=== PATIENT | female | born 1985 | race Caucasian/White ===

== ENCOUNTER 2016-12-25 11:11 | Emergency (ER) | payer OTHER ==
[2016-12-25] MEDS ORDERED: HYDROcod/ACETAM 5/325 MG TABLET PO STA (12:21)
--- NOTE | 2016-12-25 12:23 | ED Physician Documentation ---
History of Present Illness - Stated complaint Stated Complaint: GLF/RT SIDE PX - Chief complaint Chief Complaint: General - History obtained from History obtained from: Patient - History of Present Illness Timing: Today (Fell down stairs this morning at 3 a.m., hit the back of her neck and her back on the right side. Complains mostly of right posterior rib pain. She did hit her head but denies significant headache. She vomited once but she thinks that was from pain. There was no loss of consciousness. Denies extremity or abdominal injury. No low back pain. 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, Hysterectomy HEENT: Tonsil/Adenoidectomy - Present Medications Home Medications: Ambulatory Orders Medication Instructions Recorded Confirmed Venlafaxine [Effexor] 37.5 mg PO DAILY 03/21/16 03/21/16 Zolpidem [Ambien] 10 mg PO DAILY 03/21/16 03/21/16 HYDROcod/ACETAM 5/325 [[place] 5/325] 1 - 2 ea PO Q6H PRN #15 tablet 12/25/16 - Allergies Allergies/Adverse Reactions: Allergies Allergy/AdvReac Type Severity Reaction Status Date / Time acetazolamide Allergy Severe Anaphylaxis Verified 12/25/16 11:29 [From Diamox Sequels] morphine Allergy Severe Anaphylaxis Verified 12/25/16 11:29 Penicillins Allergy Unknown Unknown Verified 12/25/16 11:29 acetaminophen AdvReac Intermediate Nausea Verified 12/25/16 11:29 [From Tylenol-Codeine] codeine phosphate * AdvReac Intermediate Nausea Verified 12/25/16 11:29 [From Tylenol-Codeine] TAPE AdvReac Intermediate Rash Uncoded 03/05/14 12:44 - Social History Does the pt smoke?: No Smoking Status: Never smoker Does the pt drink ETOH?: No Does the pt have substance abuse?: No PD ED PE NORMAL - Vitals Vital signs reviewed: Yes - General General: Alert and oriented X 3, No acute distress - HEENT HEENT: PERRL, EOMI, Ears normal - Neck Neck: Other (mild mid C-spine tenderness) - Cardiac Cardiac: RRR, No murmur - Respiratory Respiratory: No respiratory distress, Clear bilaterally - Abdomen Abdomen: Non tender - Back Back: Other (Tenderness to the midthoracic spine and low ribs posteriorly on the right) - Derm Derm: Normal color, Warm and dry - Extremities Extremities: No deformity, No tenderness to palpate, Normal ROM s pain, Other ( The patient has equal and normal patellar and Achilles reflexes bilaterally. Normal sensation in all areas of the legs. Patient denies saddle anesthesia. 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 Low suspicion for head injury she is neurologically intact over this timeframe. Relevant x-rays negative. She is moving her neck around fine and after x-ray was nontender. Departure - Departure Disposition: 01 Home, Self Care Clinical Impression: Fall down stairs Qualifiers: Encounter type: initial encounter Qualified Code(s): W10.8XXA - Fall (on) (from ) other stairs and steps, initial encounter Neck strain Qualifiers: Encounter type: initial encounter Qualified Code(s): S16.1XXA - Strain of muscle, fascia and tendon at neck level, initial encounter Back contusion Qualifiers: Encounter type: initial encounter Condition: Good Record reviewed to determine appropriate education?: Yes Instructions: ED Contusion Back, ED Sprain Strain Neck Prescriptions: HYDROcod/ACETAM 5/325 [[place] 5/325] 1 - 2 ea PO Q6H PRN #15 tablet PRN Reason: Pain Comments: Call your doctor to arrange a follow up appointment. Make the next available appointment. In the interim return anytime if worse or if new symptoms develop. Do not drink or drive while on narcotic pain medicine. Note that many narcotic pain relievers also contain tylenol/acetaminophen. Please ensure that your total dose of acetaminophen from all sources does not exceed 3 grams (3000mg) per day. You may constipated on this medication, take a stool softener such as "Colace" twice a day while you are on it. Also recommend a jpyu-ggu-grrkexu laxative such as senna or MiraLAX any day that you do not have a bowel movement. If you received narcotic pain medication in the emergency department, do not drive or operate machinery for the next 24 hours. Your blood pressure was elevated today on check in to the emergency department. This does not mean that you have hypertension, it is a common phenomenon to check into the emergency department and have elevated blood pressure. I recommend that you see your primary care physician within the week to have it rechecked when you're feeling better. Forms: Activity restrictions
[2016-12-25] MEDS ORDERED: HYDROcod/ACETAM 5/325 MG TABLET ONE (12:36)
--- NOTE | 2016-12-25 14:03 | XRAY Preliminary Report ---
Exam: XR Ribs w/PA Chest RT IMPRESSION: Normal chest and rib radiography. [facility] SITE ID: [id number]
--- NOTE | 2016-12-25 14:05 | XRAY Preliminary Report ---
Exam: XR Cervical Spine 2 View IMPRESSION: Normal cervical spine radiography. [facility] SITE ID: [id number]
--- NOTE | 2016-12-25 14:07 | XRAY Report ---
EXAM: RIGHT RIB RADIOGRAPHY EXAM DATE: 12/25/2016 01:42 PM. CLINICAL HISTORY: Fall with anterior right rib pain. COMPARISON: None. TECHNIQUE: 1 view of the chest and 2 views of the ribs. FINDINGS: Bones: Normal. No fracture or bone lesion. Lungs: No focal opacities. No pneumothorax. No pleural effusions. Mediastinum: Heart and mediastinal contours are unremarkable. Other: None. IMPRESSION: Normal chest and rib radiography. [facility] Referring Provider Line: [phone] SITE ID: [id number]
--- NOTE | 2016-12-25 14:07 | XRAY Report ---
EXAM: CERVICAL SPINE RADIOGRAPHY EXAM DATE: 12/25/2016 01:42 PM. CLINICAL HISTORY: Neck pain after fall. COMPARISONS: None. TECHNIQUE: 3 views, 4 films. FINDINGS: Alignment: Normal. No spondylolisthesis or scoliosis. Bones: The cervical vertebral bodies and posterior elements are well visualized from the skull base t hrough C7-T1. No fractures or bone lesions. Disks: Normal. Disk heights are maintained. Facets: No degenerative disease. Soft Tissues: Normal. No prevertebral soft tissue swelling. The visualized lung apices are clear. IMPRESSION: Normal cervical spine radiography. [facility] Referring Provider Line: [phone] SITE ID: [id number]
--- NOTE | 2016-12-25 14:09 | XRAY Preliminary Report ---
Exam: XR Thoracic Spine 2 View IMPRESSION: Minimal degenerative disk disease without evidence of fracture. [facility] SITE ID: [id number]
--- NOTE | 2016-12-25 14:12 | XRAY Report ---
EXAM: THORACIC SPINE RADIOGRAPHY EXAM DATE: 12/25/2016 01:43 PM. CLINICAL HISTORY: Back pain after fall COMPARISON: None. TECHNIQUE: 2 views. FINDINGS: Alignment: Normal. No spondylolisthesis or scoliosis. Bones: No fractures or bone lesions. Disks: Minimal thoracic osteophytes. Soft Tissues: Surgical clips within the left upper quadrant. IMPRESSION: Minimal degenerative disk disease without evidence of fracture. [facility] Referring Provider Line: [phone] SITE ID: [id number]
[2016-12-25 14:26] VITALS: BP 129/94
== END 2016-12-25 14:28 | disposition home or self-care (01) ==
LOC: ED 11:11
DX: S20.221A Contusion of right back wall of thorax, initial encounter (principal); S16.1XXA Strain of muscle, fascia and tendon at neck level, initial encounter; W10.9XXA Fall (on) (from) unspecified stairs and steps, initial encounter; R03.0 Elevated blood-pressure reading, without diagnosis of hypertension
CPT/HCPCS: 71101; 72040; 72070; 99283; A9270

== ENCOUNTER 2017-03-19 10:13 | Emergency (ER) | payer OTHER ==
[2017-03-19] MEDS ORDERED: SODIUM CHLORIDE 0.9% 1,000 ML IV ONE (13:36)
[2017-03-19] MEDS ORDERED: KETOROLAC 60 MG/2 ML VIAL IVP STA (13:36)
[2017-03-19] MEDS ORDERED: ONDANSETRON 4 MG/2 ML VIAL IVP STA (13:36)
[2017-03-19 13:38] LABS: BILIRUBIN,URINE NEGATIVE (NEGATIVE)
--- NOTE | 2017-03-19 13:40 | ED Physician Documentation ---
History of Present Illness - Stated complaint Stated Complaint: KIDNEY PX - Chief complaint Chief Complaint: Abd Pain - Additonal information Additional information: hx from pt 31 female s/p [place] (less than 1 yr ago, doing well) shaun and hyst 8 AM onset R flank pain severe sharp unable to get comfortable with nausea no abd pain Review of Systems Constitutional: denies: Fever Cardiac: denies: Chest pain / pressure Respiratory: denies: Dyspnea GI: reports: Nausea. 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, Hysterectomy HEENT: Tonsil/Adenoidectomy - Present Medications Home Medications: Ambulatory Orders Medication Instructions Recorded Confirmed Venlafaxine [Effexor] 37.5 mg PO DAILY 03/21/16 03/19/17 Zolpidem [Ambien] 10 mg PO DAILY 03/21/16 03/19/17 Indomethacin [Indocin] 25 mg PO TIDWM PRN #21 capsule 03/19/17 Ondansetron Odt [Zofran] 4 mg TL Q6H PRN #10 tablet 03/19/17 Tamsulosin [Flomax] 0.4 mg PO DAILY #7 capsule 03/19/17 buPROPion [Wellbutrin Xl] 150 mg PO DAILY 03/19/17 03/19/17 - Allergies Allergies/Adverse Reactions: Allergies Allergy/AdvReac Type Severity Reaction Status Date / Time acetazolamide Allergy Severe Anaphylaxis Verified 03/19/17 10:25 [From Diamox Sequels] morphine Allergy Severe Anaphylaxis Verified 03/19/17 10:25 Penicillins Allergy Unknown Unknown Verified 03/19/17 10:25 acetaminophen AdvReac Intermediate Nausea Verified 03/19/17 10:25 [From Tylenol-Codeine] codeine phosphate * AdvReac Intermediate Nausea Verified 03/19/17 10:25 [From Tylenol-Codeine] TAPE AdvReac Intermediate Rash Uncoded 03/19/17 10:25 - Social History Does the pt smoke?: No Smoking Status: Never smoker Does the pt drink ETOH?: No Does the pt have substance abuse?: No - Immunizations Immunizations are current?: Yes - POLST Patient has POLST: No PD ED PE NORMAL - Vitals Vital signs reviewed: Yes - General General: Alert and oriented X 3 (presently 5/10 and comfortable) - Neck Neck: Supple, no meningeal sign - Cardiac Cardiac: RRR - Respiratory Respiratory: No respiratory distress, Clear bilaterally - Abdomen Abdomen: Soft, Non tender, Other (no RLQ pain) - Back Back: No CVA TTP (none right now but she indicates R flank was where she hurt) - Derm Derm: Normal color, No rash - Neuro 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 Results - Vitals Vitals: Vital Signs - 24 hr 03/19/17 03/19/17 10:23 13:34 Temperature 36.1 C L 37.1 C Heart Rate 96 73 Respiratory 18 16 Rate Blood Pressure 130/86 H 116/56 L O2 Saturation 95 100 Oxygen O2 Source Room air - Labs Labs: Laboratory Tests 03/19/17 03/19/17 03/19/17 13:20 13:56 13:56 WBC 12.8 H RBC 4.30 Hgb 12.0 Hct 36.7 L MCV 85.2 MCH 27.9 MCHC 32.7 RDW 13.8 Plt Count 270 MPV 9.0 Neut # 11.1 H Lymph # 1.3 L [place] # 0.4 Eos # 0.0 Baso # 0.0 Absolute Nucleated RBC 0.00 Nucleated RBCs 0.0 Sodium 137 Potassium 3.5 Chloride 101 Carbon Dioxide 27 Anion Gap 9.0 BUN 14 Creatinine 0.7 Estimated GFR (MDRD) 97 Glucose 120 H Calcium 8.7 Total Bilirubin 0.4 AST 55 H ALT 55 Alkaline Phosphatase 102 Total Protein 8.1 Albumin 4.3 Globulin 3.8 Albumin/Globulin Ratio 1.1 Lipase 20 L Urine Color YELLOW Urine Clarity CLOUDY Urine pH 6.0 Ur Specific [place] >=1.030 H Urine Protein NEGATIVE Urine Glucose (UA) NEGATIVE Urine Ketones TRACE Urine Occult Blood NEGATIVE Urine Nitrite NEGATIVE Urine Bilirubin NEGATIVE Urine Urobilinogen 1 (NORMAL) Ur Leukocyte Esterase NEGATIVE Urine RBC 0-5 Urine WBC 0-3 Ur Squamous Epith Cells MOD Squamous H Urine Crystals >50 Calcium Oxalate Urine Bacteria Few Ur Microscopic Review INDICATED - Rads (name of study) CT abd pelvis stone study Radiology: See rad report (right renal lithiasis, 1 X 2 mm stone in bladder ( then passed in the ER), but with hydro residual obstructing stone not ruled out (but not seen so preumably not large), nl appendix) Departure - Departure Disposition: 01 Home, Self Care Clinical Impression: Renal colic on right side Condition: Good Instructions: ED Stone Renal W Colic Follow-Up: Ion Back DO [Primary Care Provider] - Prescriptions: Tamsulosin [Flomax] 0.4 mg PO DAILY #7 capsule Indomethacin [Indocin] 25 mg PO TIDWM PRN #21 capsule PRN Reason: kidney stone pain Ondansetron Odt [Zofran] 4 mg TL Q6H PRN #10 tablet PRN Reason: Nausea / Vomiting Comments: The CT scan did show at least one kidney stone in your kidney and one in your bladder. And the right ureter was still swollen so you may be passing another as well. They were all small enough to pass on your own and not need surgery So it is OK for you to go home with indocin for the pain, flomax to relax the urter and help the stone pass, and zofran as needed for vomiting Drink plenty of fluids to help flush out the stones Return if worse Forms: Activity restrictions
[2017-03-19 13:43] LABS: UA w/ MICROSCOPIC CHARGE YES
[2017-03-19] MEDS ORDERED: KETOROLAC 30 MG/ML VIAL ONE (13:43)
[2017-03-19] MEDS ORDERED: SODIUM CHLORIDE FLUSH 0.9% 10 ML SYRINGE IVP ONE (13:44)
[2017-03-19] MEDS ORDERED: ONDANSETRON 4 MG/2 ML VIAL ONE (13:44)
[2017-03-19 14:04] LABS: WBC,URINE 0-3 /HPF (0-5)
[2017-03-19 14:08] LABS: BASOPHILS % (AUTO) 0.3 %; EOSINOPHILS % (AUTO) 0.1 %; HCT - HEMATOCRIT 36.7 % (37.0-47.0); LYMPHOCYTES # (AUTO) 1.3 10^3/uL (1.5-3.5); LYMPHOCYTES % (AUTO) 9.9 %; MEAN CORPUSCULAR HEMOGLOBIN 27.9 pg (27.0-31.0); MEAN CORPUSCULAR HGB CONC 32.7 g/dL (32.0-36.0); MEAN CORPUSCULAR VOLUME 85.2 fL (81.0-99.0); MONOCYTES # (AUTO) 0.4 10^3/uL (0.0-1.0); MONOCYTES % (AUTO) 3.1 %; NEUTROPHILS # (AUTO) 11.1 10^3/uL (1.5-6.6); NEUTROPHILS % (AUTO) 86.6 %; RED CELL DISTRIBUTION WIDTH 13.8 % (12.0-15.0); UNCORRECTED WHITE BLOOD COUNT 12.8 x10^3/uL; WHITE BLOOD COUNT 12.8 x10^3/uL (4.8-10.8)
[2017-03-19 14:21] LABS: ALBUMIN/GLOBULIN RATIO 1.1 (1.0-2.2); BILIRUBIN,TOTAL 0.4 mg/dL (0.2-1.0); CALCIUM 8.7 mg/dL (8.5-10.3); CREATININE 0.7 mg/dL (0.4-1.0); POTASSIUM 3.5 mmol/L (3.5-5.0); TOTAL PROTEIN 8.1 g/dL (6.7-8.2)
[2017-03-19] MEDS ORDERED: ACETAMINOPHEN 1,000 MG/100 ML 100 ML IV STA (15:05)
--- NOTE | 2017-03-19 15:13 | CT Preliminary Report ---
Exam: CT Abdomen/Pelvis W/O IMPRESSION: 1. Right renal lithiasis. 2. Mild right hydronephrosis and right hydroureter. 1 x 2 mm stone dependent portion of the urinary b ladder would be consistent with a recently passed right ureteral stone. Note, however, that a residua l obstructing stone right ureter not excluded. Recommend follow-up studies as clinically indicated if this young lady's signs or symptoms persist or progress. 3. Normal appendix. [facility] SITE ID: [id number]
[2017-03-19] MEDS ORDERED: ACETAMINOPHEN 1,000 MG/100 ML 100 ML IV ONE (15:16)
--- NOTE | 2017-03-19 15:23 | CT Report ---
EXAM: CT ABDOMEN AND PELVIS EXAM DATE: 03/19/2017 02:48 PM. CLINICAL HISTORY: Right flank pain. Difficulty urinating. COMPARISONS: None. TECHNIQUE: Routine helical CT imaging was performed through the abdomen and pelvis. IV contrast: None . Enteric contrast: No. Reconstructions: Coronal and sagittal. In accordance with CT protocol optimization, one or more of the following dose reduction techniques w ere utilized for this exam: automated exposure control, adjustment of mA and/or KV based on patient s ize, or use of iterative reconstructive technique. FINDINGS: Lung Bases: Unremarkable. Liver: Normal. No masses. Gallbladder/Bile Ducts: Unremarkable. Spleen: Normal. Pancreas: Normal. Adrenal Glands: Normal. Kidneys: 2 x 1 mm stone in the inferior right renal calyx. Mild right hydronephrosis. Mild dilatation of the e ntirety of the right ureter without calcifications within the right ureter. Left kidney and left ureter are unremarkable. Peritoneal Cavity/Bowel: Remote bariatric surgery. No free fluid, free air or adenopathy. No masses o r acute inflammatory process. The appendix is well visualized and normal. Pelvic Organs: 1 x 2 mm stone in the dependent central portion of the small caliber urinary bladder. Hysterectomy. No free fluid nor mass lesions. Vasculature: No aneurysms or other significant abnormality. Bones: Old mild anterior wedging T8 to L1. Other: None. IMPRESSION: 1. Right renolithiasis. 2. Mild right hydronephrosis and right hydroureter. 1 x 2 mm stone dependent portion of the urinary b ladder would be consistent with a recently passed right ureteral stone. Note, however, that a residua l obstructing stone right ureter not excluded. Recommend follow-up studies as clinically indicated if this young lady's signs or symptoms persist or progress. 3. Normal appendix. [facility] Referring Provider Line: [phone] SITE ID: [id number]
[2017-03-19 16:36] VITALS: BP 116/61
== END 2017-03-19 16:49 | disposition home or self-care (01) ==
LOC: ED 10:13
DX: N20.0 Calculus of kidney (principal); Z90.710 Acquired absence of both cervix and uterus; Z98.84 Bariatric surgery status
CPT/HCPCS: 36415; 74176; 80053; 81001; 83690; 85025; 96361; 96374; 96375; 99283; 99284; J0131; 81003; 87086

== ENCOUNTER 2017-07-10 13:13 | Emergency (ER) | payer OTHER ==
[2017-07-10 13:20] VITALS: BP 148/90
[2017-07-10] MEDS ORDERED: ONDANSETRON ODT 4 MG TABLET TL STA (13:31)
[2017-07-10] MEDS ORDERED: INDOMETHACIN 25 MG CAPSULE PO STA (13:31)
[2017-07-10] MEDS ORDERED: TAMSULOSIN 0.4 MG CAPSULE PO STA (13:31)
[2017-07-10] MEDS ORDERED: oxyCOD/ACETAMIN 5 MG/325 MG TABLET PO STA (13:31)
--- NOTE | 2017-07-10 13:33 | ED Physician Documentation ---
PD HPI ABD PAIN - Stated complaint Stated Complaint: RT SIDE PX - Chief complaint Chief Complaint: Abd Pain - History obtained from History obtained from: Patient - History of Present Illness Timing - onset: Other (32-year-old woman with history of renal colic once in March. CT done at that time did show right renal lithiasis. Her urine was positive for calcium oxalate. She developed right flank pain today with nausea but no vomiting. She has urinary frequency but no dysuria. No fevers. 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 HEENT: Tonsil/Adenoidectomy - Present Medications Home Medications: Ambulatory Orders Medication Instructions Recorded Confirmed Venlafaxine [Effexor] 37.5 mg PO DAILY 03/21/16 07/10/17 Zolpidem [Ambien] 10 mg PO DAILY 03/21/16 07/10/17 buPROPion [Wellbutrin Xl] 150 mg PO DAILY 03/19/17 07/10/17 Indomethacin [Indocin] 25 mg PO BIDWM PRN #10 capsule 07/10/17 Ondansetron HCl [Zofran] 4 mg PO Q6HR PRN #10 tablet 07/10/17 Oxycodone HCl/Acetaminophen 1 - 2 tab PO Q4H PRN #15 tablet 07/10/17 [Percocet 5-325 mg Tablet] Tamsulosin [Flomax] 0.4 mg PO DAILY #14 capsule 07/10/17 - Allergies Allergies/Adverse Reactions: Allergies Allergy/AdvReac Type Severity Reaction Status Date / Time acetazolamide Allergy Severe Anaphylaxis Verified 03/19/17 10:25 [From Diamox Sequels] morphine Allergy Severe Anaphylaxis Verified 03/19/17 10:25 Penicillins Allergy Unknown Unknown Verified 03/19/17 10:25 acetaminophen AdvReac Intermediate Nausea Verified 03/19/17 10:25 [From Tylenol-Codeine] codeine phosphate * AdvReac Intermediate Nausea Verified 03/19/17 10:25 [From Tylenol-Codeine] TAPE AdvReac Intermediate Rash Uncoded 03/19/17 10:25 - Social History Does the pt smoke?: No Smoking Status: Never smoker Does the pt drink ETOH?: No Does the pt have substance abuse?: No - Immunizations Immunizations are current?: Yes - POLST Patient has POLST: No PD ED PE NORMAL - Vitals Vital signs reviewed: Yes - General General: Alert and oriented X 3, No acute distress - Abdomen Abdomen: Soft, Non tender - Extremities Extremities: No edema, No calf tenderness / cord - Neuro 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, Normal speech Results - Vitals Vitals: Vital Signs - 24 hr 07/10/17 13:18 Temperature 36.4 C L Heart Rate 84 Respiratory 16 Rate Blood Pressure 148/90 H O2 Saturation 100 Oxygen O2 Source Room air - Labs Labs: Laboratory Tests 07/10/17 13:27 Urine Color YELLOW Urine Clarity CLEAR Urine pH 6.0 Ur Specific [place] 1.025 Urine Protein NEGATIVE Urine Glucose (UA) NEGATIVE Urine Ketones NEGATIVE Urine Occult Blood TRACE-INTA Urine Nitrite NEGATIVE Urine Bilirubin NEGATIVE Urine Urobilinogen 1 (NORMAL) Ur Leukocyte Esterase NEGATIVE Ur Microscopic Review NOT INDICATED Urine Culture Comments NOT INDICATED PD MEDICAL DECISION MAKING - ED course ED course: Patient is pretty sure of the diagnosis as am I, she requests minimal workup and time in the ER, urinalysis will be done noting that she is status post hysterectomy. She declined IV medication. Departure - Departure Disposition: 01 Home, Self Care Clinical Impression: Renal colic on right side Condition: Good Record reviewed to determine appropriate education?: Yes Instructions: ED Stone Renal W Colic Prescriptions: Ondansetron HCl [Zofran] 4 mg PO Q6HR PRN #10 tablet PRN Reason: Nausea / Vomiting Indomethacin [Indocin] 25 mg PO BIDWM PRN #10 capsule PRN Reason: Pain Oxycodone HCl/Acetaminophen [Percocet 5-325 mg Tablet] 1 - 2 tab PO Q4H PRN #15 tablet PRN Reason: Pain Tamsulosin [Flomax] 0.4 mg PO DAILY #14 capsule Comments: Call your doctor to arrange a follow-up appointment, make the next available appointment. In the interim, return anytime if worse or if new symptoms develop. Your blood pressure was elevated today on check into the emergency department. This does not mean that you have hypertension, it is a common phenomenon to come to the emergency department and have elevated blood pressure. I recommend that you see your primary care physician within the week to have it rechecked when you are feeling better. Do not drink or drive while taking narcotic pain medication. Note that many narcotic pain relievers also contain Tylenol/acetaminophen. Please ensure that your total dose of acetaminophen from all sources does not exceed 3 g (3000 mg) per day. You may get constipated while on this medication. Take a stool softener such as Colace twice a day while you are on it. Also add an [id number] laxative such as senna or MiraLAX on any day that you do not have a bowel movement. If you received a narcotic pain medication or sedative while in the emergency department, do not drive for the next 24 hours.
[2017-07-10 13:38] LABS: BILIRUBIN,URINE NEGATIVE (NEGATIVE)
[2017-07-10 13:39] LABS: UA CHARGE (STRIP ONLY) YES; UR CULTURE IF IND NOT INDICATED
[2017-07-10] MEDS ORDERED: INDOMETHACIN 25 MG CAPSULE PO ONE (13:49)
[2017-07-10] MEDS ORDERED: oxyCOD/ACETAMIN 5 MG/325 MG TABLET PO ONE (13:49)
[2017-07-10] MEDS ORDERED: ONDANSETRON ODT 4 MG TABLET ONE (13:49)
[2017-07-10] MEDS ORDERED: TAMSULOSIN 0.4 MG CAPSULE ONE (13:49)
== END 2017-07-10 13:48 | disposition home or self-care (01) ==
LOC: ED 13:13
DX: N23 Unspecified renal colic (principal); R03.0 Elevated blood-pressure reading, without diagnosis of hypertension
CPT/HCPCS: 81003; 99283; 99284; A9270; Q0162; 81001; 87086

== ENCOUNTER 2017-07-11 18:50 | Emergency (ER) | payer OTHER ==
[2017-07-11 20:38] LABS: BILIRUBIN,URINE NEGATIVE (NEGATIVE)
[2017-07-11 20:39] LABS: UA CHARGE (STRIP ONLY) YES; UR CULTURE IF IND NOT INDICATED
[2017-07-11] MEDS ORDERED: ONDANSETRON ODT 4 MG TABLET TL STA (21:06)
[2017-07-11] MEDS ORDERED: ONDANSETRON ODT 4 MG Prepack 2 TL PRN (21:06)
--- NOTE | 2017-07-11 21:08 | ED Physician Documentation ---
PD HPI BACK PAIN - Stated complaint Stated Complaint: SIDE PX - Chief complaint Chief Complaint: Back Pain - History obtained from History obtained from: Patient - History of Present Illness Timing - onset: Yesterday Timing - details: Gradual onset, Still present Location: Lower, Right Quality: Pain, Spasm, Similar to prior episodes Associated symptoms: No: Fever, Weakness, Numbness, Incontinent of urine, Unable to urinate Similar symptoms before: Work up / diagnostics, Treatment Recently seen: Emergency Dept - Additional information Additional information: Patient is a 32 year old female who is presenting to the emergency department for low back pain. patient was seen yesterday and was diagnosed with a small right sided kidney stone, 1mm by 2mm. Patient states that the pain persisted and that she has been nauseated so she came back into the emergency department. Patient states that she ran out of her zofran and is having a hard time controlling her nausea, but patient is able to tolerate PO without difficulty. Review of Systems Constitutional: reports: Chills. denies: Fever, Myalgias Eyes: reports: Reviewed and negative Ears: reports: Reviewed and negative Nose: reports: Reviewed and negative Throat: reports: Reviewed and negative Cardiac: denies: Chest pain / pressure, Palpitations Respiratory: denies: Dyspnea, Cough, Wheezing GI: reports: Nausea. denies: Vomiting, Constipation, Diarrhea : denies: Dysuria, Frequency Skin: denies: Rash, Lesions Musculoskeletal: reports: Back pain. 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, Hysterectomy HEENT: Tonsil/Adenoidectomy - Present Medications Home Medications: Ambulatory Orders Medication Instructions Recorded Confirmed Venlafaxine [Effexor] 37.5 mg PO DAILY 03/21/16 07/11/17 Zolpidem [Ambien] 10 mg PO DAILY 03/21/16 07/11/17 buPROPion [Wellbutrin Xl] 150 mg PO DAILY 03/19/17 07/11/17 Indomethacin [Indocin] 25 mg PO BIDWM PRN #10 capsule 07/10/17 07/11/17 Ondansetron HCl [Zofran] 4 mg PO Q6HR PRN #10 tablet 07/10/17 07/11/17 Oxycodone HCl/Acetaminophen 1 - 2 tab PO Q4H PRN #15 tablet 07/10/17 07/11/17 [Percocet 5-325 mg Tablet] Tamsulosin [Flomax] 0.4 mg PO DAILY #14 capsule 07/10/17 07/11/17 Ondansetron Odt [Zofran] 4 mg TL Q6H PRN #20 tablet 07/11/17 - Allergies Allergies/Adverse Reactions: Allergies Allergy/AdvReac Type Severity Reaction Status Date / Time acetazolamide Allergy Severe Anaphylaxis Verified 07/11/17 19:27 [From Diamox Sequels] morphine Allergy Severe Anaphylaxis Verified 07/11/17 19:27 Penicillins Allergy Unknown Unknown Verified 07/11/17 19:27 acetaminophen AdvReac Intermediate Nausea Verified 07/11/17 19:27 [From Tylenol-Codeine] codeine phosphate * AdvReac Intermediate Nausea Verified 07/11/17 19:27 [From Tylenol-Codeine] TAPE AdvReac Intermediate Rash Uncoded 07/11/17 19:27 - Social History Does the pt smoke?: No Smoking Status: Never smoker Does the pt drink ETOH?: Yes ETOH Use: Wine Does the pt have substance abuse?: No - Immunizations Immunizations are current?: Yes - POLST Patient has POLST: No PD ED PE NORMAL - Vitals Vital signs reviewed: Yes - General General: Alert and oriented X 3, No acute distress, Well developed/nourished - HEENT HEENT: Atraumatic, PERRL, Moist mucous membranes - Cardiac Cardiac: RRR, No murmur - Respiratory Respiratory: No respiratory distress - Abdomen Abdomen: Soft, Non tender, Non distended - Derm Derm: Normal color, Warm and dry, No rash - Extremities Extremities: No deformity, Normal ROM s pain, No edema - Neuro 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, No motor deficit, No sensory deficit - Psych Psych: Normal mood Results - Vitals Vitals: Vital Signs - 24 hr 07/11/17 07/11/17 07/11/17 19:23 21:03 21:25 Temperature 36.6 C 36.6 C Heart Rate 84 81 76 Respiratory 18 18 18 Rate Blood Pressure 129/82 H 125/79 117/78 O2 Saturation 100 100 97 Oxygen O2 Source Room air - Labs Labs: Laboratory Tests 07/11/17 20:20 Urine Color YELLOW Urine Clarity CLEAR Urine pH 6.0 Ur Specific [place] >=1.030 H Urine Protein NEGATIVE Urine Glucose (UA) NEGATIVE Urine Ketones TRACE Urine Occult Blood NEGATIVE Urine Nitrite NEGATIVE Urine Bilirubin NEGATIVE Urine Urobilinogen 0.2 (NORMAL) Ur Leukocyte Esterase NEGATIVE Ur Microscopic Review NOT INDICATED Urine Culture Comments NOT INDICATED PD MEDICAL DECISION MAKING - ED course Complexity details: reviewed old records, reviewed results, re-evaluated patient , considered differential, d/w patient ED course: Patient was seen and examined at bedside. Previous records were reviewed and patient was found to have a small stone, 1mm by 2mm. Urine was collected and showed no sign of infection. patient was treated with zofran. prescriptions had already been written yesterday for the patient. Patient required no further work up at this time, and patient was stable for discharge with outpatient follow up. Departure - Departure Disposition: 01 Home, Self Care Clinical Impression: Renal colic on right side Condition: Good Instructions: ED Stone Renal W Colic Follow-Up: Ion Back DO [Primary Care Provider] - Within 3 Days Prescriptions: Ondansetron Odt [Zofran] 4 mg TL Q6H PRN #20 tablet PRN Reason: Nausea / Vomiting Comments: Your diagnostics today were within normal limits. there is no sign of infection on your urinalysis and the size of your stone is relatively small and should pass on its own. You should take the zofran for nausea and stay well hydrated. You can take the motrin, or tylenol as needed for pain. YOu should follow up with your doctor if your symptoms persist. You may return to the emergency department at any time for new, worsening or uncontrollable symptoms. Forms: Activity restrictions Discharge Date/Time: 07/11/17 21:35
[2017-07-11] MEDS ORDERED: ONDANSETRON ODT 4 MG TABLET ONE (21:14)
[2017-07-11] MEDS ORDERED: ONDANSETRON ODT 4 MG Prepack 2 TL ONE (21:14)
[2017-07-11 21:35] VITALS: BP 117/78
== END 2017-07-11 21:35 | disposition home or self-care (01) ==
LOC: ED 18:50
DX: N23 Unspecified renal colic (principal); Z87.442 Personal history of urinary calculi
CPT/HCPCS: 81003; 99283; Q0162; 81001; 87086

== ENCOUNTER 2017-11-07 08:52 | Emergency (ER) | payer OTHER ==
--- NOTE | 2017-11-07 10:06 | ED Physician Documentation ---
History of Present Illness - Stated complaint Stated Complaint: LT FT SWOLLEN - Chief complaint Chief Complaint: Ext Problem - Additonal information Additional information: hx from pt 32 f tattoo form a week ago infected - foot red warm swollen painful denies preg no hx PRSA all pencillin but has taken keflex s rxn Review of Systems Constitutional: denies: Fever : denies: Now EGA Skin: reports: Rash PD PAST MEDICAL HISTORY - Past Medical History Cardiovascular: None Respiratory: None Neuro: None Endocrine/Autoimmune: None GI: None : Kidney stones HEENT: None Psych: None Musculoskeletal: None Derm: None - Past Surgical History General: Cholecystectomy, 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 11/07/17 - Allergies Allergies/Adverse Reactions: Allergies Allergy/AdvReac Type Severity Reaction Status Date / Time acetazolamide Allergy Severe Anaphylaxis Verified 11/07/17 08:58 [From Diamox Sequels] morphine Allergy Severe Anaphylaxis Verified 11/07/17 08:58 Penicillins Allergy Unknown Unknown Verified 11/07/17 08:58 acetaminophen AdvReac Intermediate Nausea Verified 11/07/17 08:58 [From Tylenol-Codeine] codeine phosphate * AdvReac Intermediate Nausea Verified 11/07/17 08:58 [From Tylenol-Codeine] TAPE AdvReac Intermediate Rash Uncoded 07/11/17 19:27 - Social History Does the pt smoke?: No Smoking Status: Never smoker Does the pt drink ETOH?: Yes Does the pt have substance abuse?: No - Immunizations Immunizations are current?: Yes - POLST Patient has POLST: No PD ED PE NORMAL - Vitals Vital signs reviewed: Yes - Cardiac Cardiac: RRR - Respiratory Respiratory: No respiratory distress, Clear bilaterally - Extremities Extremities: Other (L foot with erythema tenderness swelling surrounding new tattoo - no streaking, no crepitus, no bullae, no necrosis) Results - Vitals Vitals: Vital Signs - 24 hr 11/07/17 08:54 Temperature 36.7 C Heart Rate 84 Respiratory 16 Rate Blood Pressure 143/79 H O2 Saturation 99 Oxygen O2 Source Room air Departure - Departure Disposition: Home, Self Care Clinical Impression: Cellulitis of foot Condition: Good Instructions: ED Infec Skin Cellulitis Follow-Up: Ion Back DO [Primary Care Provider] - (for a recheck next week) Prescriptions: Cephalexin [Keflex] 500 mg PO Q6H #28 capsule HYDROcod/ACETAM 5/325 [[place] 5/325] 1 ea PO Q6H PRN #6 tablet PRN Reason: Severe Pain Mupirocin Calcium [Bactroban] 1 applic TP BID #30 cream..g. Forms: Activity restrictions
[2017-11-07 10:25] VITALS: BP 130/85
== END 2017-11-07 10:24 | disposition home or self-care (01) ==
LOC: ED 08:52
DX: L03.116 Cellulitis of left lower limb (principal); L81.8 Other specified disorders of pigmentation
CPT/HCPCS: 99283

== ENCOUNTER 2018-06-09 10:31 | Emergency (ER) | payer OTHER ==
[2018-06-09 11:26] LABS: BILIRUBIN,URINE NEGATIVE (NEGATIVE); GLUCOSE, URINE (UA) NEGATIVE (NEGATIVE); KETONES,URINE (UA) NEGATIVE (NEGATIVE); LEUKOCYTE ESTERASE, URINE SMALL (NEGATIVE); NITRITE,URINE POSITIVE (NEGATIVE); OCCULT BLOOD,URINE MODERATE (NEGATIVE); PH,URINE 5.5 PH (5.0-7.5); PROTEIN,URINE TRACE mg/dL (NEGATIVE); UROBILINOGEN,URINE 0.2 (NORMAL) E.U./dL (NORMAL)
[2018-06-09 11:50] LABS: CLARITY,URINE CLOUDY (CLEAR)
[2018-06-09 11:51] LABS: BACTERIA,URINE Moderate /HPF (None Seen); MUCUS,URINE Moderate Strands; SQUAMOUS EPITHELIAL CELL,UR RARE Squamous (<= Few)
[2018-06-09 12:00] LABS: BASOPHILS % (AUTO) 0.2 %; HGB - HEMOGLOBIN 11.1 g/dL (12.0-16.0); LYMPHOCYTES # (AUTO) 0.6 10^3/uL (1.5-3.5); MEAN CORPUSCULAR HEMOGLOBIN 28.1 pg (27.0-31.0); MEAN CORPUSCULAR HGB CONC 32.8 g/dL (32.0-36.0); MEAN CORPUSCULAR VOLUME 85.6 fL (81.0-99.0); MEAN PLATELET VOLUME 8.6 fL (7.9-10.8); MONOCYTES # (AUTO) 1.5 10^3/uL (0.0-1.0); MONOCYTES % (AUTO) 4.9 %; NEUTROPHILS # (AUTO) 27.5 10^3/uL (1.5-6.6); NEUTROPHILS % (AUTO) 92.9 %; PLT - PLATELET COUNT 279 10^3/uL (130-450); RED BLOOD COUNT 3.97 10^6/uL (4.20-5.40); RED CELL DISTRIBUTION WIDTH 14.1 % (12.0-15.0); WHITE BLOOD COUNT 29.6 x10^3/uL (4.8-10.8)
[2018-06-09 12:12] LABS: ALBUMIN 3.9 g/dL (3.2-5.5); ALBUMIN/GLOBULIN RATIO 1.1 (1.0-2.2); BILIRUBIN,TOTAL 0.9 mg/dL (0.2-1.0); CALCIUM 8.2 mg/dL (8.5-10.3); TOTAL PROTEIN 7.4 g/dL (6.7-8.2)
[2018-06-09] MEDS ORDERED: SODIUM CHLORIDE 0.9% 1,000 ML IV ONE (13:02)
[2018-06-09] MEDS ORDERED: levoFLOXacin 500 MG/100 ML 500 MG/100 ML BAG IV ONE (13:02)
[2018-06-09] MEDS ORDERED: HYDROmorphone 1 MG/ML CARPUJECT IVP STA ×2 (13:05→14:26)
[2018-06-09] MEDS ORDERED: PROMETHAZINE INJ 25 MG in SODIUM CHLORIDE 0.9% 50 ML IV STA (13:05)
[2018-06-09] MEDS ORDERED: KETOROLAC 15 MG/ML VIAL IVP STA (13:05)
--- NOTE | 2018-06-09 13:05 | ED Physician Documentation ---
PD HPI ABD PAIN - Stated complaint Stated Complaint: SIDE PX/VOMITING/CHILLS - Chief complaint Chief Complaint: Abd Pain - History obtained from History obtained from: Patient - History of Present Illness Timing - onset: Yesterday (32-year-old woman with history of conservatively managed renal colic presents with sudden onset right flank pain with chills, nausea, and vomiting since yesterday as well as body aches and other systemic symptoms. She feels like it is consistent with prior renal colic.) Review of Systems Ten Systems: 10 systems reviewed and negative Constitutional: reports: Fever. denies: Chills Cardiac: denies: Chest pain / pressure, Palpitations Respiratory: denies: Dyspnea, Cough GI: reports: Abdominal Pain, Nausea, Vomiting. 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 11/07/17 - Allergies Allergies/Adverse Reactions: Allergies Allergy/AdvReac Type Severity Reaction Status Date / Time acetazolamide Allergy Severe Anaphylaxis Verified 06/09/18 11:07 [From Diamox Sequels] morphine Allergy Severe Anaphylaxis Verified 06/09/18 11:07 Penicillins Allergy Unknown Unknown Verified 06/09/18 11:07 acetaminophen AdvReac Intermediate Nausea Verified 06/09/18 11:07 [From Tylenol-Codeine] codeine phosphate * AdvReac Intermediate Nausea Verified 06/09/18 11:07 [From Tylenol-Codeine] TAPE AdvReac Intermediate Rash Uncoded 07/11/17 19:27 - Social History Does the pt smoke?: No Smoking Status: Never smoker Does the pt drink ETOH?: Yes Does the pt have substance abuse?: No - Immunizations Immunizations are current?: Yes - POLST Patient has POLST: No PD ED PE NORMAL - Vitals Vital signs reviewed: Yes - General General: Alert and oriented X 3, No acute distress - HEENT HEENT: Pharynx benign - Neck Neck: Supple, no meningeal sign, No bony TTP - Cardiac Cardiac: RRR, No murmur - Respiratory Respiratory: No respiratory distress, Clear bilaterally - Abdomen Abdomen: Non distended, Other (Mild RUQ TTP, No G/R) - Back Back: No CVA TTP, No spinal TTP - Derm Derm: Normal color, Warm and dry - Extremities Extremities: No edema, No calf tenderness / cord - Neuro 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, Normal speech Results - Vitals Vitals: Vital Signs - 24 hr 06/09/18 06/09/18 11:03 13:13 Temperature 36.9 C Heart Rate 114 H 106 H Respiratory 18 20 Rate Blood Pressure 105/57 L 121/75 O2 Saturation 98 97 Oxygen O2 Source Room air - Labs Labs: Laboratory Tests 06/09/18 06/09/18 06/09/18 11:20 11:42 11:42 WBC 29.6 H RBC 3.97 L Hgb 11.1 L Hct 34.0 L MCV 85.6 MCH 28.1 MCHC 32.8 RDW 14.1 Plt Count 279 MPV 8.6 Neut # (Auto) 27.5 H Lymph # (Auto) 0.6 L [place] # (Auto) 1.5 H Eos # (Auto) 0.0 Baso # (Auto) 0.0 Absolute Nucleated RBC 0.00 Nucleated RBC % 0.0 Manual Slide Review Indicated Sodium 135 Potassium 4.0 Chloride 102 Carbon Dioxide 22 Anion Gap 11.0 BUN 16 Creatinine 1.0 Estimated GFR (MDRD) 64 L Glucose 152 H Lactic Acid Calcium 8.2 L Total Bilirubin 0.9 AST 35 ALT 22 Alkaline Phosphatase 74 Total Protein 7.4 Albumin 3.9 Globulin 3.5 Albumin/Globulin Ratio 1.1 Lipase 22 Urine Color YELLOW Urine Clarity CLOUDY Urine pH 5.5 Ur Specific [place] >=1.030 H Urine Protein TRACE Urine Glucose (UA) NEGATIVE Urine Ketones NEGATIVE Urine Occult Blood MODERATE H Urine Nitrite POSITIVE H Urine Bilirubin NEGATIVE Urine Urobilinogen 0.2 (NORMAL) Ur Leukocyte Esterase SMALL H Urine RBC 6-10 H Urine WBC 11-25 H Ur Squamous Epith Cells RARE Squamous Urine Bacteria Moderate H Urine Mucus Moderate Strands Ur Microscopic Review INDICATED Urine Culture Comments INDICATED 06/09/18 13:07 WBC RBC Hgb Hct MCV MCH MCHC RDW Plt Count MPV Neut # (Auto) Lymph # (Auto) [place] # (Auto) Eos # (Auto) Baso # (Auto) Absolute Nucleated RBC Nucleated RBC % Manual Slide Review Sodium Potassium Chloride Carbon Dioxide Anion Gap BUN Creatinine Estimated GFR (MDRD) Glucose Lactic Acid 1.9 Calcium Total Bilirubin AST ALT Alkaline Phosphatase Total Protein Albumin Globulin Albumin/Globulin Ratio Lipase Urine Color Urine Clarity Urine pH Ur Specific [place] Urine Protein Urine Glucose (UA) Urine Ketones Urine Occult Blood Urine Nitrite Urine Bilirubin Urine Urobilinogen Ur Leukocyte Esterase Urine RBC Urine WBC Ur Squamous Epith Cells Urine Bacteria Urine Mucus Ur Microscopic Review Urine Culture Comments - Rads (name of study) CT KUB Radiology: EMP read contemporaneously (Right hydronephrosis d/t 6mm distal ureteral stone) PD MEDICAL DECISION MAKING - ED course ED course: 32-year-old woman with conservatively managed renal colic in the past presents with sudden onset right-sided pain consistent with renal colic but has an infected appearing urinalysis with a white count of 29,000 which is concerning for obstructive pyelonephritis. A CT will be done, blood cultures obtained and Levaquin is hung. After the CT showing obstructive uropathy due to a distal ureteral stone I discussed the case by phone with Dr. Boland at [facility] who will consult defers to the hospitalist there for admission. Spoke with Dr. nielsen at 1410 who accepts in transfer to schedule hospitalist service, wes saldana. Departure - Departure Disposition: 02 Transfer Acute Care Hosp Clinical Impression: Ureterolithiasis, Pyelonephritis Condition: Serious
--- NOTE | 2018-06-09 13:50 | CT Report ---
Reason: R pyelo, +/- stone Procedure Date: 06/09/2018 Accession Number: [id number] / [id number] Procedure: CT - Abdomen/Pelvis W/O CPT Code: FULL RESULT: EXAM: CT ABDOMEN AND PELVIS EXAM DATE: 06/09/2018 01:32 PM. CLINICAL HISTORY: Right pyelo, +/- stone. COMPARISONS: ABDOMEN/PELVIS W/O 03/19/2017 2:36 PM. TECHNIQUE: Routine helical CT imaging was performed through the abdomen and pelvis. IV contrast: No. Enteric contrast: No. Reconstructions: Coronal and sagittal. In accordance with CT protocol optimization, one or more of the following dose reduction techniques were utilized for this exam: automated exposure control, adjustment of mA and/or KV based on patient size, or use of iterative reconstructive technique. FINDINGS: Lung Bases: Unremarkable. Liver: Normal. No masses. Gallbladder/Bile Ducts: Unremarkable. Spleen: Normal. Pancreas: Normal. Adrenal Glands: Normal. Kidneys: Interval increase in previously mild hydronephrosis, now moderate hydroureteronephrosis with marked perinephric fat stranding and 6 mm obstructing ureteral calculus at the distal ureterovesicular junction. Left kidney demonstrates punctate nonobstructing calculi and is otherwise unremarkable. Peritoneal Cavity/Bowel: The patient is status post gastric bypass surgery. No free fluid, free air or adenopathy. No masses or acute inflammatory process. Pelvic Organs: Normal. The bladder and visualized pelvic organs are within normal limits. Vasculature: No aneurysms or other significant abnormality. Bones: No significant abnormality. Other: None. IMPRESSION: Moderate right hydroureteronephrosis due to obstructing 6 mm distal ureteral calculus. [facility] CRITICAL RESULT: The findings were discussed with Dr. Guillory on 06/09/2018 at 1:35 PM.
[2018-06-09] MEDS ORDERED: ONDANSETRON 4 MG/2 ML VIAL IVP STA (14:26)
[2018-06-09 15:22] VITALS: BP 128/75
== END 2018-06-09 15:32 | disposition short-term general hospital (02) ==
LOC: ED 10:31
DX: N13.2 Hydronephrosis with renal and ureteral calculous obstruction (principal); N12 Tubulo-interstitial nephritis, not specified as acute or chronic; Z87.442 Personal history of urinary calculi
CPT/HCPCS: 36415; 74176; 80053; 81001; 83605; 83690; 85025; 87040; 87086; 87181; 96365; 96368; 96375; 96376; 99283; 99285; J1170; J7040; 81003; 99284

== ENCOUNTER 2018-06-09 15:26 | Outpatient (CLI) | payer OTHER | END 2018-06-09 15:27 | disposition short-term general hospital (02) | LOC: EMS 15:26 | PROVIDERS: ATTEND Surgery | DX: N20.0 Calculus of kidney (principal) | CPT/HCPCS: A0425; A0428 ==

== ENCOUNTER 2018-08-17 12:45 | Emergency (ER) | payer BC, OTHER ==
[2018-08-17] MEDS ORDERED: PROMETHAZINE INJ 25 MG in SODIUM CHLORIDE 0.9% 50 ML IV STA (13:17)
[2018-08-17] MEDS ORDERED: HYDROmorphone 1 MG/ML CARPUJECT IVP STA (13:17)
--- NOTE | 2018-08-17 13:19 | ED Physician Documentation ---
PD HPI ABD PAIN - Stated complaint Stated Complaint: R FLANK PAIN - Chief complaint Chief Complaint: Abd Pain - History obtained from History obtained from: Patient, Family - History of Present Illness Timing - onset: Other (About 2 months ago she had a large right ureteral stone causing obstruction with pyelonephritis and ended up having E. coli urosepsis from it. The stone was removed and she had a stent for 3 weeks. Review of the CT done at that time showed no nephroliths on the right, she had some on the left. Over the last week she has had increasing waxing and waning right flank pain that is nonradiating with urinary frequency and she had hematuria briefly 2 days ago. There are no fevers or chills.) Review of Systems Ten Systems: 10 systems reviewed and negative Constitutional: denies: Fever, Chills Nose: denies: Rhinorrhea / runny nose, Congestion Respiratory: denies: Dyspnea, Cough GI: reports: Nausea. denies: Abdominal Pain, Vomiting : reports: Frequency. 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 11/07/17 Oxycodone HCl/Acetaminophen 1 - 2 each PO Q6H PRN #14 tablet 08/17/18 [Percocet 5-325 mg Tablet] Promethazine [Phenergan] 25 mg PO Q6H PRN #10 tab 08/17/18 - Allergies Allergies/Adverse Reactions: Allergies Allergy/AdvReac Type Severity Reaction Status Date / Time acetazolamide Allergy Severe Anaphylaxis Verified 06/09/18 11:07 [From Diamox Sequels] morphine Allergy Severe Anaphylaxis Verified 06/09/18 11:07 Penicillins Allergy Unknown Unknown Verified 06/09/18 11:07 acetaminophen AdvReac Intermediate Nausea Verified 06/09/18 11:07 [From Tylenol-Codeine] codeine phosphate * AdvReac Intermediate Nausea Verified 06/09/18 11:07 [From Tylenol-Codeine] TAPE AdvReac Intermediate Rash Uncoded 07/11/17 19:27 - Social History Does the pt smoke?: No Smoking Status: Never smoker Does the pt drink ETOH?: Yes Does the pt have substance abuse?: No - Immunizations Immunizations are current?: Yes - POLST Patient has POLST: No PD ED PE NORMAL - Vitals Vital signs reviewed: Yes - General General: Alert and oriented X 3, No acute distress - HEENT HEENT: PERRL, EOMI - Neck Neck: Supple, no meningeal sign, No bony TTP - Cardiac Cardiac: RRR, No murmur - Respiratory Respiratory: No respiratory distress, Clear bilaterally - Abdomen Abdomen: Normal bowel sounds, Soft, Non tender - Back Back: No CVA TTP, No spinal TTP - Extremities Extremities: No edema, No calf tenderness / cord - Neuro 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, Normal speech - Psych Psych: Normal mood, Normal affect Results - Vitals Vitals: Vital Signs - 24 hr 08/17/18 13:00 Temperature 37.1 C Heart Rate 79 Respiratory 18 Rate Blood Pressure 135/83 H O2 Saturation 100 Oxygen O2 Source Room air - Labs Labs: Laboratory Tests 08/17/18 08/17/18 08/17/18 13:06 13:14 13:14 WBC 9.5 RBC 4.16 L Hgb 11.2 L Hct 33.8 L MCV 81.2 MCH 26.9 L MCHC 33.2 RDW 16.1 H Plt Count 291 MPV 8.6 Neut # (Auto) 5.9 Lymph # (Auto) 2.6 [place] # (Auto) 0.7 Eos # (Auto) 0.1 Baso # (Auto) 0.1 Absolute Nucleated RBC 0.00 Nucleated RBC % 0.0 Sodium 138 Potassium 3.2 L Chloride 106 Carbon Dioxide 26 Anion Gap 6.0 BUN 17 Creatinine 0.5 Estimated GFR (MDRD) 141 Glucose 87 Calcium 8.5 Total Bilirubin 0.4 AST 21 ALT 18 Alkaline Phosphatase 98 Total Protein 8.2 Albumin 4.1 Globulin 4.1 Albumin/Globulin Ratio 1.0 Lipase 22 Urine Color YELLOW Urine Clarity HAZY Urine pH 6.0 Ur Specific [place] 1.025 Urine Protein NEGATIVE Urine Glucose (UA) NEGATIVE Urine Ketones NEGATIVE Urine Occult Blood NEGATIVE Urine Nitrite NEGATIVE Urine Bilirubin NEGATIVE Urine Urobilinogen 0.2 (NORMAL) Ur Leukocyte Esterase NEGATIVE Urine RBC 0-5 Urine WBC 0-3 Ur Squamous Epith Cells MANY Squamous H Urine Bacteria Many H Urine Mucus Marked Strands Ur Microscopic Review INDICATED Urine Culture Comments NOT INDICATED 08/17/18 14:55 WBC RBC Hgb Hct MCV MCH MCHC RDW Plt Count MPV Neut # (Auto) Lymph # (Auto) [place] # (Auto) Eos # (Auto) Baso # (Auto) Absolute Nucleated RBC Nucleated RBC % Sodium Potassium Chloride Carbon Dioxide Anion Gap BUN Creatinine Estimated GFR (MDRD) Glucose Calcium Total Bilirubin AST ALT Alkaline Phosphatase Total Protein Albumin Globulin Albumin/Globulin Ratio Lipase Urine Color YELLOW Urine Clarity CLEAR Urine pH 6.0 Ur Specific [place] <=1.005 Urine Protein NEGATIVE Urine Glucose (UA) NEGATIVE Urine Ketones NEGATIVE Urine Occult Blood NEGATIVE Urine Nitrite NEGATIVE Urine Bilirubin NEGATIVE Urine Urobilinogen 0.2 (NORMAL) Ur Leukocyte Esterase NEGATIVE Urine RBC Urine WBC Ur Squamous Epith Cells Urine Bacteria Urine Mucus Ur Microscopic Review NOT INDICATED Urine Culture Comments NOT INDICATED - Rads (name of study) CT IVP Radiology: EMP read contemporaneously (Mild right hydronephrosis and hydroureter without stone, nonobstructing nephrolithiasis on the left and other chronic findings.) PD MEDICAL DECISION MAKING - ED course ED course: She presents with renal colic type pain, but the CT from May was reviewed, there were no other nephroliths on the right and she subsequently had the obstructing stone removed. This left a differential of very rapidly growing stone on the right but that seems unlikely, scar or stricture from prior manipulation or stone which seems more likely, or pyelonephritis. Her urine was relatively clear and she does not have a white count. The CT was done as an IVP to evaluate for scar stricture and I suspect this may be the diagnosis. She failed to develop a good rapport with her prior urologist and is referred to another group. Departure - Departure Disposition: 01 Home, Self Care Clinical Impression: Hydroureter on right Condition: Good Record reviewed to determine appropriate education?: Yes Instructions: ED Abdominal Pain Unkn Cause Prescriptions: Oxycodone HCl/Acetaminophen [Percocet 5-325 mg Tablet] 1 - 2 each PO Q6H PRN #14 tablet PRN Reason: pain Promethazine [Phenergan] 25 mg PO Q6H PRN #10 tab PRN Reason: Nausea / Vomiting Comments: With a copy of the CAT scan I recommend following up again with urologist, a different option from the one used before would be Dr. Semaj Sloan, his office is in [place]. His phone number is [phone].
[2018-08-17 13:25] LABS: BILIRUBIN,URINE NEGATIVE (NEGATIVE); GLUCOSE, URINE (UA) NEGATIVE (NEGATIVE); KETONES,URINE (UA) NEGATIVE (NEGATIVE); LEUKOCYTE ESTERASE, URINE NEGATIVE (NEGATIVE); NITRITE,URINE NEGATIVE (NEGATIVE); OCCULT BLOOD,URINE NEGATIVE (NEGATIVE); PROTEIN,URINE NEGATIVE (NEGATIVE); UROBILINOGEN,URINE 0.2 (NORMAL) E.U./dL (NORMAL)
[2018-08-17 13:25] LABS: BASOPHILS # (AUTO) 0.1 10^3/uL (0.0-0.1); BASOPHILS % (AUTO) 0.9 %; EOSINOPHILS # (AUTO) 0.1 10^3/uL (0.0-0.7); EOSINOPHILS % (AUTO) 1.4 %; HGB - HEMOGLOBIN 11.2 g/dL (12.0-16.0); LYMPHOCYTES # (AUTO) 2.6 10^3/uL (1.5-3.5); LYMPHOCYTES % (AUTO) 27.8 %; MEAN CORPUSCULAR HEMOGLOBIN 26.9 pg (27.0-31.0); MEAN CORPUSCULAR HGB CONC 33.2 g/dL (32.0-36.0); MEAN CORPUSCULAR VOLUME 81.2 fL (81.0-99.0); MEAN PLATELET VOLUME 8.6 fL (7.9-10.8); MONOCYTES # (AUTO) 0.7 10^3/uL (0.0-1.0); MONOCYTES % (AUTO) 7.5 %; NEUTROPHILS # (AUTO) 5.9 10^3/uL (1.5-6.6); NEUTROPHILS % (AUTO) 62.4 %; PLT - PLATELET COUNT 291 10^3/uL (130-450); RED BLOOD COUNT 4.16 10^6/uL (4.20-5.40); RED CELL DISTRIBUTION WIDTH 16.1 % (12.0-15.0); WHITE BLOOD COUNT 9.5 x10^3/uL (4.8-10.8)
[2018-08-17 13:26] LABS: CLARITY,URINE HAZY (CLEAR)
[2018-08-17 13:32] LABS: ALBUMIN 4.1 g/dL (3.2-5.5); BILIRUBIN,TOTAL 0.4 mg/dL (0.2-1.0); CALCIUM 8.5 mg/dL (8.5-10.3); CREATININE 0.5 mg/dL (0.4-1.0); TOTAL PROTEIN 8.2 g/dL (6.7-8.2)
[2018-08-17 13:40] LABS: BACTERIA,URINE Many /HPF (None Seen); RBC,URINE 0-5 /HPF (0-5); SQUAMOUS EPITHELIAL CELL,UR MANY Squamous (<= Few)
[2018-08-17] MEDS ORDERED: IOVERSOL 320 100 ML VIAL IVP ONE ×2 (13:40→14:32)
[2018-08-17 13:41] LABS: MUCUS,URINE Marked Strands
[2018-08-17 15:06] LABS: BILIRUBIN,URINE NEGATIVE (NEGATIVE); CLARITY,URINE CLEAR (CLEAR); GLUCOSE, URINE (UA) NEGATIVE (NEGATIVE); KETONES,URINE (UA) NEGATIVE (NEGATIVE); LEUKOCYTE ESTERASE, URINE NEGATIVE (NEGATIVE); NITRITE,URINE NEGATIVE (NEGATIVE); OCCULT BLOOD,URINE NEGATIVE (NEGATIVE); PROTEIN,URINE NEGATIVE (NEGATIVE); UROBILINOGEN,URINE 0.2 (NORMAL) E.U./dL (NORMAL)
--- NOTE | 2018-08-17 15:07 | CT Report ---
Reason: R FLANK PAIN Procedure Date: 08/17/2018 Accession Number: [id number] / [id number] Procedure: CT - IVP CPT Code: FULL RESULT: EXAM: CT ABDOMEN AND PELVIS WITHOUT AND WITH CONTRAST (CT IVP) EXAM DATE: 08/17/2018 02:30 PM. CLINICAL HISTORY: R FLANK PAIN. COMPARISONS: ABDOMEN/PELVIS W/O 06/09/2018 1:26 PM. TECHNIQUE: Routine helical imaging was performed through the kidneys, ureters and bladder in the precontrast, postcontrast and delayed phase. IV Contrast: OPTI 320 100mL. Reconstructions: Coronal and sagittal. In accordance with CT protocol optimization, one or more of the following dose reduction techniques were utilized for this exam: automated exposure control, adjustment of mA and/or KV based on patient size, or use of iterative reconstructive technique. FINDINGS: Lung Bases: Unremarkable. Right Kidney/Ureter: No right renal or ureteral stone. There is mild right hydronephrosis and hydroureter. Contrast and excretory phase is seen to the distal right ureter. No focal renal mass. Left Kidney/Ureter: There is a 3 mm nonobstructing stone in the midpole calyx of left kidney. No ureter stone or hydronephrosis. No abnormal filling defect. Other Solid Organs: There is limited enhancement of the solid organs postcontrast. The liver, spleen, pancreas, adrenal glands appear unremarkable.Gallbladder not visualized. Peritoneal Cavity/Bowel: There are findings of previous gastric surgery and presumed gastrojejunostomy. No dilated bowel or obstruction. No abnormal fluid or gas collection. Pelvic Organs: Urinary bladder appears unremarkable. Uterus not visualized. Vasculature: Normal. Bones: Normal. Other: None. IMPRESSION: 1. Mild right hydronephrosis and hydroureter. No obstructing ureter stone or renal mass. Finding could represent right pyelonephritis versus vesicoureteral reflux versus recently passed ureteral calculus 2. Nonobstructing 3 mm left kidney stone. 3. Previous gastrojejunostomy poor. No other localizing acute inflammatory process demonstrated. RADIA
[2018-08-17 15:33] VITALS: BP 145/83
== END 2018-08-17 15:33 | disposition home or self-care (01) ==
LOC: ED 12:45
DX: N13.4 Hydroureter (principal)
CPT/HCPCS: 36415; 74178; 80053; 81001; 81003; 83690; 85025; 96365; 96375; 99283; 99284; J1170; J7040; Q9967; 87086

== ENCOUNTER 2018-10-13 09:44 | Outpatient (CLI) | payer BC, OTHER | END 2018-10-13 23:59 | disposition home or self-care (01) | LOC: LAB.R 09:44 | PROVIDERS: ATTEND Obstetrics & Gynecology | DX: N39.46 Mixed incontinence (principal) | CPT/HCPCS: 87086 ==

== ENCOUNTER 2019-03-12 14:36 | Outpatient (CLI) | payer BC, OTHER ==
--- NOTE | 2019-03-12 15:52 | Mammography Report ---
Reason: SCREENING MAMMO Procedure Date: 03/12/2019 Accession Number: [id number] / [id number] Procedure: DEANDRA - Screening Mammo w/[place] CPT Code: FULL RESULT: EXAM: Screening Mammo w/[place] DATE: 03/12/2019 3:16 PM CLINICAL HISTORY: Screening encounter. History of early menses and family history of breast cancer in the mother at the age of 41, maternal aunt at the age of 46, additional maternal aunt at the age of 47 and maternal aunt at the age of 40. Baseline mammogram. TECHNIQUE: (B) - Bilateral CC and MLO views were obtained. COMPARISON: None PARENCHYMAL PATTERN: (D) - The breast(s) demonstrate(s) heterogeneously dense fibroglandular parenchyma. FINDINGS: There are no suspicious masses, calcifications, or areas of distortion. IMPRESSION: Negative examination. BI-RADS category 1. RECOMMENDATION: (ANNUAL) - Recommend routine annual screening mammography. BI-RADS CATEGORY: (1) - Negative. STANDARD QUALIFYING STATEMENTS: 1. This examination was not reviewed with the aid of Computer-Aided Detection (CAD). 2. A negative or benign imaging report should not preclude biopsy if clinically suspicious findings are present. 3. Dense breasts may obscure an underlying neoplasm. 4. This examination was reviewed with the aid of 3D breast imaging (tomosynthesis).
== END 2019-03-12 14:37 | disposition home or self-care (01) ==
LOC: DI 14:36
DX: Z12.31 Encounter for screening mammogram for malignant neoplasm of breast (principal); Z80.3 Family history of malignant neoplasm of breast
CPT/HCPCS: 77063; 77067

== ENCOUNTER 2019-07-02 06:29 | Day surgery (SDC) | payer BC, OTHER ==
[2019-07-02] MEDS ORDERED: LACTATED RINGERS 1,000 ML IV ONE (07:00)
--- NOTE | 2019-07-02 07:57 | ANESTHESIA ---
Pre-Anesthesia VS, & Labs - Diagnosis anemia - Procedure colonoscopy Vital Signs: Temp Pulse Resp BP Pulse Ox 36.2 C L 94 18 151/103 H 98 07/02/19 06:35 07/02/19 06:35 07/02/19 06:35 07/02/19 06:35 07/02/19 06:35 Height 5 ft 9 in Weight (kg) 131.7 kg Body Mass Index 34.7 - NPO >8 hours - Is Patient ?: No Home Medications and Allergies Home Medications: Ambulatory Orders Duloxetine HCl [Cymbalta] 60 mg PO DAILY 07/01/19 Gabapentin 300 mg PO DAILY 07/01/19 Zolpidem [Ambien] 10 mg PO PRN PRN 03/21/16 buPROPion [Wellbutrin Xl] 300 mg PO DAILY 03/19/17 Duloxetine HCl [Cymbalta] 60 mg PO DAILY 07/01/19 Gabapentin 300 mg PO DAILY 07/01/19 Allergies/Adverse Reactions: Allergies Allergy/AdvReac Type Severity Reaction Status Date / Time acetazolamide Allergy Severe Anaphylaxis Verified 06/09/18 11:07 [From Diamox Sequels] morphine Allergy Severe Anaphylaxis Verified 06/09/18 11:07 Penicillins Allergy Unknown Unknown Verified 06/09/18 11:07 codeine phosphate * AdvReac Intermediate Nausea Verified 06/09/18 11:07 [From Tylenol-Codeine] TAPE AdvReac Intermediate Rash Uncoded 07/11/17 19:27 Anes History & Medical History - Anesthetic History Anesthesia Complications: reports: Post-Operative Nausea/Vomiting - Medical History Cardiovascular: reports: None Pulmonary: reports: None Gastrointestinal: reports: None, Other (Gastric sleeve) Urinary: reports: Kidney stones Neuro: reports: None Musculoskeletal: reports: None Endocrine/Autoimmune: reports: None Blood Disorders: reports: None Skin: reports: None Smoking Status: Never smoker - Surgical History General: Cholecystectomy, Gastric surgery Eyes Ears Nose Throat (EENT): Tonsil/Adenoidectomy Gynecologic: section, Hysterectomy Exam General: Alert, Oriented x3, Cooperative, No acute distress Dental: WNL Mouth Openin Fingerbreadth Neck Mobility: Normal Mallampati classification: I Thyromental Distance: greater than 6 cm Mental/Cognitive Status: Alert/Oriented X3, Normal for patient Plan Anesthesia Type: MAC Consent for Procedure(s) Verified and Reviewed: Yes Code Status: Attempt Resuscitation ASA classification: 2-Mild systemic disease Is this case an emergency?: No
[2019-07-02 08:52] VITALS: BP 130/97
== END 2019-07-02 06:30 | disposition home or self-care (01) ==
LOC: SDS 06:29
PROVIDERS: ATTEND Surgery
PROC: 0DJD8ZZ Inspection of Lower Intestinal Tract, Via Natural or Artificial Opening Endoscopic (ICD-10-PCS; principal; 2019-07-02 07:30)
DX: D50.9 Iron deficiency anemia, unspecified (principal); F32.9 Major depressive disorder, single episode, unspecified; N39.46 Mixed incontinence; Z98.84 Bariatric surgery status; Z90.79 Acquired absence of other genital organ(s); Z96.89 Presence of other specified functional implants

== ENCOUNTER 2019-07-07 07:00 | Outpatient (CLI) | payer BC, OTHER ==
[2019-07-07 18:10] LABS: FOLATE 12.84 ng/mL (5.90 - >24.8)
[2019-07-07 18:27] LABS: FOLLICLE STIMULATING HORMONE 7.82 mIU/mL
[2019-07-07 18:28] LABS: LUTEINIZING HORMONE 4.83 mIU/mL
== END 2019-07-07 23:59 | disposition home or self-care (01) ==
LOC: LAB.R 07:00
PROVIDERS: ATTEND Physician Assistant Medical
DX: D64.9 Anemia, unspecified (principal)
CPT/HCPCS: 36415; 82607; 82670; 82746; 83001; 83002

== ENCOUNTER 2019-07-08 12:18 | Day surgery (SDC) | payer BC, OTHER ==
[2019-07-08] MEDS ORDERED: LACTATED RINGERS 1,000 ML IV ONE (12:31)
[2019-07-08] MEDS: LIDO GARGLE 30 ML BOTTLE ONE ×2 (14:09→14:33)
[2019-07-08] MEDS ORDERED: BENZOCAINE/TETRACAINE/BUTAMBEN 20 GM TOP ONE ×2 (14:09→14:35)
--- NOTE | 2019-07-08 14:19 | ANESTHESIA ---
Pre-Anesthesia VS, & Labs - Diagnosis anemia - Procedure EGD Vital Signs: Temp Pulse Resp BP Pulse Ox 36.6 C 76 11 L 153/101 H 100 07/08/19 12:36 07/08/19 12:36 07/08/19 12:36 07/08/19 12:36 07/08/19 12:36 Height 5 ft 9 in Weight (kg) 134.6 kg Body Mass Index 34.7 - Is Patient ?: No Home Medications and Allergies Zolpidem [Ambien] 10 mg PO PRN PRN 03/21/16 buPROPion [Wellbutrin Xl] 300 mg PO DAILY 03/19/17 Duloxetine HCl [Cymbalta] 60 mg PO DAILY 07/01/19 Gabapentin 300 mg PO DAILY 07/01/19 Allergies/Adverse Reactions: Allergies Allergy/AdvReac Type Severity Reaction Status Date / Time acetazolamide Allergy Severe Anaphylaxis Verified 06/09/18 11:07 [From Diamox Sequels] morphine Allergy Severe Anaphylaxis Verified 06/09/18 11:07 Penicillins Allergy Unknown Unknown Verified 06/09/18 11:07 codeine phosphate * AdvReac Intermediate Nausea Verified 06/09/18 11:07 [From Tylenol-Codeine] fentanyl AdvReac blindness, Verified 07/08/19 13:03 drowsey and stays in system long time TAPE AdvReac Intermediate Rash Uncoded 07/11/17 19:27 Anes History & Medical History - Anesthetic History Anesthesia Complications: reports: No previous complications Family history of Anesthesia Complications: Denies Family history of Malignant Hyperthermia: Denies - Medical History Cardiovascular: reports: None Pulmonary: reports: None Gastrointestinal: reports: None Urinary: reports: Kidney stones Neuro: reports: None Musculoskeletal: reports: Scoliosis, Chronic back pain Endocrine/Autoimmune: reports: None Blood Disorders: reports: None Skin: reports: None Smoking Status: Never smoker Psychosocial: reports: No issues indicated - Surgical History General: Cholecystectomy, Gastric surgery, Colonoscopy Eyes Ears Nose Throat (EENT): Tonsil/Adenoidectomy Urologic: Kidney stents, Ureterolithotomy (stones), Bladder surgery Gynecologic: section, Tubal ligation, Hysterectomy Exam General: Alert, Oriented x3, Cooperative, No acute distress Dental: WNL Mouth Openin Fingerbreadth Neck Mobility: Normal Mallampati classification: I Thyromental Distance: 4-6 cm Respiratory: Lungs clear, Normal breath sounds, No respiratory distress, No accessory muscle use Cardiovascular: Regular rate, Normal S1, Normal S2, No murmurs Abdomen: Normal bowel sounds, Soft, No tenderness, No hepatospenomegaly, No masses Extremities: No clubbing, No cyanosis, No edema, Normal pulses, No tenderness/swelling Neurological: Normal gait, Normal speech, Strength at 5/5 X4 ext, Normal tone, Sensation intact, Cranial nerves 3-12 NL, Reflexes 2+ Mental/Cognitive Status: Alert/Oriented X3, Normal for patient Cognitive Status: Within normal limits Plan Anesthesia Type: MAC Consent for Procedure(s) Verified and Reviewed: Yes Code Status: Attempt Resuscitation ASA classification: 2-Mild systemic disease Is this case an emergency?: No
[2019-07-08 15:04] VITALS: BP 142/93
== END 2019-07-08 12:19 | disposition home or self-care (01) ==
LOC: SDS 12:18
PROVIDERS: ATTEND Surgery
PROC: 0DB68ZX Excision of Stomach, Via Natural or Artificial Opening Endoscopic, Diagnostic (ICD-10-PCS; 2019-07-08)
PROC: 0DB98ZX Excision of Duodenum, Via Natural or Artificial Opening Endoscopic, Diagnostic (ICD-10-PCS; principal; 2019-07-08 14:00)
DX: D50.9 Iron deficiency anemia, unspecified (principal); K44.9 Diaphragmatic hernia without obstruction or gangrene; M41.9 Scoliosis, unspecified; M54.5 Low back pain; G89.29 Other chronic pain; F32.9 Major depressive disorder, single episode, unspecified; Z98.84 Bariatric surgery status; Z90.710 Acquired absence of both cervix and uterus; Z87.442 Personal history of urinary calculi; Z96.89 Presence of other specified functional implants

== ENCOUNTER 2019-07-30 14:37 | Outpatient (CLI) | payer BC, OTHER ==
--- NOTE | 2019-07-31 13:28 | MRI Report ---
Reason: LOW BACK PAIN CHRONIC Procedure Date: 07/30/2019 Accession Number: [id number] / [id number] Procedure: MRI - Lumbar Spine W/O CPT Code: Final Report FULL RESULT: EXAM: MRI LUMBAR SPINE WITHOUT CONTRAST EXAM DATE: 07/30/2019 03:23 PM. CLINICAL HISTORY: Chronic low back pain. COMPARISON: Lumbar spine radiography from 06/25/2019. TECHNIQUE: Multiplanar, multisequence T1-weighted and fluid-sensitive sequences of the lumbar spine from T12 to S1 without contrast. Other: None. FINDINGS: Spinal Canal: The conus terminates at L1-L2. The conus medullaris and cauda equina are unremarkable. Alignment: Mild levoconvex scoliosis. Bone Marrow: Five [id number] lumbar vertebral bodies are assumed. No gross fractures or bone lesions. No bone marrow replacement. Disk Levels/Facets: L5-S1: Unremarkable. L4-L5: Unremarkable. L3-L4: Small right foraminal disk protrusion. Mild to moderate right subarticular zone stenosis and mild right foraminal stenosis. L2-L3: Unremarkable. L1-L2: Unremarkable. T12-L1: Small posterior left paracentral disk protrusion. Minimal left-sided canal narrowing. Mild facet arthropathy. No foraminal stenosis. Musculature: Normal. No edema or fatty atrophy. Other: The partially visualized retroperitoneum is unremarkable. IMPRESSION: 1. Mild levoconvex scoliosis. 2. Small right foraminal disk protrusion, mild to moderate right subarticular zone stenosis, and mild right foraminal stenosis at L3-L4. 3. Small posterior left paracentral disk protrusion and minimal left sciatic canal narrowing at T12-L1. Comment: The following findings are so common in adults without low back pain that while we report their presence, they must be interpreted with caution and in the context of the clinical situation. (Reference Prosperk et al, Spine 2001) Prevalence of findings in patients without low back pain: Disk degeneration (any evidence): 92% Disk desiccation/T2 signal loss: 83% Disk height loss: 56% Disk bulge: 64% Disk protrusion: 32% Annular tear/high intensity zone: 38% RADIA
== END 2019-07-30 14:38 | disposition home or self-care (01) ==
LOC: DI 14:37
PROVIDERS: ATTEND Physician Assistant Medical
DX: M51.26 Other intervertebral disc displacement, lumbar region (principal); M51.25 Other intervertebral disc displacement, thoracolumbar region; M48.061 Spinal stenosis, lumbar region without neurogenic claudication; M41.86 Other forms of scoliosis, lumbar region
CPT/HCPCS: 72148

== ENCOUNTER 2019-09-11 18:36 | Emergency (ER) | payer BC, OTHER ==
--- NOTE | 2019-09-11 19:26 | ED Physician Documentation ---
PD HPI BACK PAIN - Stated complaint Stated Complaint: RT SIDE LOWER BACK PAIN - Chief complaint Chief Complaint: Back Pain - History obtained from History obtained from: Patient - History of Present Illness Timing - onset: Chronic ((several months but increasingly severe past few days)) Timing - details: Gradual onset, Waxing and waning Pain level now: 7 Location: Lower, Right Quality: Spasm, Similar to prior episodes Associated symptoms: No: Fever, Weakness, Numbness, Incontinent of urine, Unable to urinate, Hematuria Improves with: Rest Worsened by: Movement Similar symptoms before: Diagnosis ("bulging discs" (per patient) on recent MRI (July 2019)) - Additional information Additional information: c/o chronic right low back pain that is usually controlled with her gabapentin and diclofenac, but over past few days has gradually become increasingly worse. 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 : Kidney stones HEENT: None Psych: Depression Musculoskeletal: Scoliosis, Chronic back pain Derm: None - Past Surgical History Past Surgical History: Yes General: Cholecystectomy, Gastric surgery, Colonoscopy /OUTSIDE COLLECTOR: section, Tubal ligation, Hysterectomy HEENT: Tonsil/Adenoidectomy - Present Medications Home Medications: Ambulatory Orders Medication Instructions Recorded Confirmed Zolpidem [Ambien] 10 mg PO PRN PRN 03/21/16 08/26/19 buPROPion [Wellbutrin Xl] 300 mg PO DAILY 03/19/17 08/26/19 Duloxetine HCl [Cymbalta] 60 mg PO DAILY 07/01/19 08/26/19 Gabapentin 300 mg PO DAILY 07/01/19 08/26/19 Cyclobenzaprine [Flexeril] 10 mg PO TID PRN #20 tablet 09/11/19 Oxycodone HCl/Acetaminophen 1 - 2 each PO Q6H PRN #14 tablet 09/11/19 [Percocet 5-325 mg Tablet] - Allergies Allergies/Adverse Reactions: Allergies Allergy/AdvReac Type Severity Reaction Status Date / Time acetazolamide Allergy Severe Anaphylaxis Verified 09/11/19 18:50 [From Diamox Sequels] morphine Allergy Severe Anaphylaxis Verified 09/11/19 18:50 Penicillins Allergy Unknown Unknown Verified 09/11/19 18:50 adhesive tape AdvReac Intermediate Rash Verified 09/11/19 18:50 codeine phosphate * AdvReac Intermediate Nausea Verified 09/11/19 18:50 [From Tylenol-Codeine] fentanyl AdvReac blindness, Verified 09/11/19 18:50 drowsey and stays in system long time - Social History Does the pt smoke?: No Smoking Status: Never smoker Does the pt drink ETOH?: Yes Does the pt have substance abuse?: No - Immunizations Immunizations are current?: Yes - POLST Patient has POLST: No PD ED PE NORMAL - Vitals Vital signs reviewed: Yes - General General: Alert and oriented X 3, No acute distress (NAD at rest, appears to be in painful distress with movement involving lower back), Well developed/nourished - Abdomen Abdomen: Soft, Non tender - Back Back: No CVA TTP, No spinal TTP - Derm Derm: Normal color, Warm and dry, No rash - Neuro Neuro: No motor deficit Results - Vitals Vitals: Vital Signs - 24 hr 09/11/19 09/11/19 18:46 20:26 Temperature 36.0 C L 36.5 C Heart Rate 80 80 Respiratory 16 16 Rate Blood Pressure 123/89 H 120/88 H O2 Saturation 95 98 Oxygen O2 Source Room air PD MEDICAL DECISION MAKING - ED course Complexity details: reviewed old records, re-evaluated patient, considered differential, d/w patient Departure - Departure Disposition: Home, Self Care Clinical Impression: Back pain Condition: Good Instructions: ED Neck Back Pain General Follow-Up: Agustina Morrison PA-C [Primary Care Provider] - (Saturday as scheduled) Prescriptions: Cyclobenzaprine [Flexeril] 10 mg PO TID PRN #20 tablet PRN Reason: Spasms Oxycodone HCl/Acetaminophen [Percocet 5-325 mg Tablet] 1 - 2 each PO Q6H PRN #14 tablet PRN Reason: pain Discharge Date/Time: 09/11/19 20:26
[2019-09-11] MEDS ORDERED: oxyCODONE/ACET 5/325 Prepack 4 PO STA (19:41)
[2019-09-11] MEDS ORDERED: oxyCODONE 5 MG TABLET PO STA (19:41)
[2019-09-11] MEDS ORDERED: CYCLOBENZAPRINE 10 MG Prepack 2 PO PRN (19:41)
[2019-09-11] MEDS: CYCLOBENZAPRINE 10 MG TABLET PO STA ×2 (19:55→19:57)
[2019-09-11 20:27] VITALS: BP 120/88
== END 2019-09-11 20:26 | disposition home or self-care (01) ==
LOC: ED 18:36
DX: M54.5 Low back pain (principal)
CPT/HCPCS: 99282; 99284; A9270

== ENCOUNTER 2019-10-25 09:10 | Emergency (ER) | payer BC, OTHER ==
--- NOTE | 2019-10-25 09:30 | ED Physician Documentation ---
PD HPI FEMALE - Stated complaint Stated Complaint: FEMAL - Chief complaint Chief Complaint: Abd Pain - History obtained from History obtained from: Patient - History of Present Illness Timing - onset: How many days ago (The patient has had some urinary discomfort for the last couple of days and using Pyridium. She had an onset of left flank pain abruptly overnight that awoke her from sleep and has been persistent. She does have a history of kidney infections as well as kidney stones.) Timing - duration: Hours Timing - details: Abrupt onset, Still present Associated symptoms: Back pain (left flank). No: Fever Contributing factors: No: Exposed to STD Similar symptoms before: Diagnosis (symptoms with kidney stones and with pyelo in the past.) Review of Systems Constitutional: denies: Fever, Chills, Myalgias Nose: denies: Rhinorrhea / runny nose, Congestion Throat: denies: Sore throat Respiratory: denies: Cough GI: reports: Abdominal Pain, Nausea, Vomiting. denies: Abdominal Swelling, Diarrhea : reports: Dysuria, Frequency. 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 : Kidney stones HEENT: None Psych: Depression Musculoskeletal: Scoliosis, Chronic back pain Derm: None - Past Surgical History Past Surgical History: Yes General: Cholecystectomy, Gastric surgery, Colonoscopy /CONFECTIONERY LABORATORY MANAGER: section, Tubal ligation, Hysterectomy HEENT: Tonsil/Adenoidectomy - Present Medications Home Medications: Ambulatory Orders Medication Instructions Recorded Confirmed Zolpidem [Ambien] 10 mg PO PRN PRN 03/21/16 10/25/19 Duloxetine HCl [Cymbalta] 60 mg PO DAILY 07/01/19 10/25/19 Gabapentin 300 mg PO TID 07/01/19 10/25/19 Cyclobenzaprine [Flexeril] 10 mg PO TID PRN #20 tablet 09/11/19 10/25/19 Oxycodone HCl/Acetaminophen 1 - 2 each PO Q6H PRN #14 tablet 09/11/19 10/25/19 [Percocet 5-325 mg Tablet] Bupropion HCl [Wellbutrin Xl] 300 mg DAILY 10/25/19 10/25/19 Sulfamethox/Trimeth 800/160 1 each PO BID #10 tablet 10/25/19 [Bactrim Ds 800/160] - Allergies Allergies/Adverse Reactions: Allergies Allergy/AdvReac Type Severity Reaction Status Date / Time acetazolamide Allergy Severe Anaphylaxis Verified 10/25/19 09:16 [From Diamox Sequels] morphine Allergy Severe Anaphylaxis Verified 10/25/19 09:16 Penicillins Allergy Unknown Unknown Verified 10/25/19 09:16 adhesive tape AdvReac Intermediate Rash Verified 10/25/19 09:16 codeine phosphate * AdvReac Intermediate Nausea Verified 10/25/19 09:16 [From Tylenol-Codeine] fentanyl AdvReac blindness, Verified 10/25/19 09:16 drowsey and stays in system long time - Social History Does the pt smoke?: No Smoking Status: Never smoker Does the pt drink ETOH?: Yes Does the pt have substance abuse?: No - Immunizations Immunizations are current?: Yes - POLST Patient has POLST: No PD ED PE NORMAL - Vitals Vital signs reviewed: Yes - General General: Alert and oriented X 3, Well developed/nourished, Other (appears in considerable pain) - Neck Neck: Supple, no meningeal sign, No adenopathy - Cardiac Cardiac: RRR, No murmur - Respiratory Respiratory: Clear bilaterally - Abdomen Abdomen: Normal bowel sounds, Soft, Non distended, No organomegaly, Other (some pain with palpation left abd but not guarding nor percussion. Palpation does not worsen pain much. ) - Female Female : Deferred - Rectal Rectal: Deferred - Back Back: No CVA TTP - Derm Derm: Normal color, Warm and dry, No rash - Neuro 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, No motor deficit, Normal speech Results - Vitals Vitals: Vital Signs - 24 hr 10/25/19 10/25/19 10/25/19 09:34 10:06 10:32 Temperature Heart Rate 90 76 80 Respiratory 16 18 16 Rate Blood Pressure 129/92 H 129/92 H 127/90 H O2 Saturation 98 98 98 10/25/19 11:53 Temperature 36.5 C Heart Rate 78 Respiratory 16 Rate Blood Pressure 128/70 O2 Saturation 100 Oxygen O2 Source Room air - Labs Labs: Laboratory Tests 10/25/19 10/25/19 10/25/19 09:20 09:20 09:20 WBC 9.0 RBC 4.05 L Hgb 11.9 L Hct 38.0 MCV 93.8 MCH 29.4 MCHC 31.3 L RDW 15.2 H Plt Count 326 MPV 10.2 Neut # (Auto) 6.0 Lymph # (Auto) 2.3 [place] # (Auto) 0.5 Eos # (Auto) 0.1 Baso # (Auto) 0.1 Absolute Nucleated RBC 0.00 Nucleated RBC % 0.0 Sodium 137 Potassium 3.8 Chloride 104 Carbon Dioxide 26 Anion Gap 7.0 BUN 18 Creatinine 0.6 Estimated GFR (MDRD) 114 Glucose 90 Lactic Acid Calcium 8.8 Total Bilirubin 0.4 AST 23 ALT 28 Alkaline Phosphatase 77 Total Protein 7.6 Albumin 4.0 Globulin 3.6 Albumin/Globulin Ratio 1.1 Lipase 17 L Urine Color ORANGE Urine Clarity CLEAR Urine pH Ur Specific [place] 1.025 Urine Protein Urine Glucose (UA) NEGATIVE Urine Ketones NEGATIVE Urine Occult Blood Urine Nitrite Urine Bilirubin NEGATIVE Urine Urobilinogen Ur Leukocyte Esterase NEGATIVE Urine RBC 11-25 H Urine WBC 4-5 Ur Squamous Epith Cells FEW Squamous Urine Bacteria Few Ur Microscopic Review NOT INDICATED Urine Culture Comments NOT INDICATED Urine HCG, Qual 10/25/19 10/25/19 09:20 10:20 WBC RBC Hgb Hct MCV MCH MCHC RDW Plt Count MPV Neut # (Auto) Lymph # (Auto) [place] # (Auto) Eos # (Auto) Baso # (Auto) Absolute Nucleated RBC Nucleated RBC % Sodium Potassium Chloride Carbon Dioxide Anion Gap BUN Creatinine Estimated GFR (MDRD) Glucose Lactic Acid 1.0 Calcium Total Bilirubin AST ALT Alkaline Phosphatase Total Protein Albumin Globulin Albumin/Globulin Ratio Lipase Urine Color Urine Clarity Urine pH Ur Specific [place] 1.025 Urine Protein Urine Glucose (UA) Urine Ketones Urine Occult Blood Urine Nitrite Urine Bilirubin Urine Urobilinogen Ur Leukocyte Esterase Urine RBC Urine WBC Ur Squamous Epith Cells Urine Bacteria Ur Microscopic Review Urine Culture Comments Urine HCG, Qual NEGATIVE - Rads (name of study) KUB CT Radiology: Prelim report reviewed (stone in kidney. No ureteral stones), See rad report PD MEDICAL DECISION MAKING - ED course Complexity details: re-evaluated patient (She is feeling improved and states she passed a stone going to the bathroom just going into CT scan. She is feeling better at this time. Urine shows suggestive of infection so can treat with an antibiotic for a few days in case. No signs of sepsis.), considered differential (She was having pain consistent with a kidney stone versus kidney infection. We will get a urine test and give her some medicines as well as a CT scan. Concern would be for an infected stone.), d/w patient Departure - Departure Disposition: Home, Self Care Clinical Impression: Left sided abdominal pain, Ureterolithiasis UTI (urinary tract infection) Qualifiers: Urinary tract infection type: acute cystitis Hematuria presence: without hematuria Qualified Code(s): N30.00 - Acute cystitis without hematuria Condition: Stable Record reviewed to determine appropriate education?: Yes Follow-Up: Agustina Morrison PA-C [Primary Care Provider] - Prescriptions: Sulfamethox/Trimeth 800/160 [Bactrim Ds 800/160] 1 each PO BID #10 tablet Comments: There was a suggestion of some mild infection in the urine test. We could cover with Bactrim antibiotic twice daily for 5 days just in case. Predominantly the pain was probably the stone you have just passed. There may be some residual pain from ureteral spasms over the next day or 2 so some Tylenol or ibuprofen and stay well-hydrated. Recheck if not improved over the next day or 2. Discharge Date/Time: 10/25/19 11:53
[2019-10-25] MEDS ORDERED: KETOROLAC 30 MG/ML VIAL IVP STA (09:52)
[2019-10-25] MEDS ORDERED: HYDROmorphone 1 MG/ML CARPUJECT IVP STA (09:52)
[2019-10-25] MEDS ORDERED: ONDANSETRON 4 MG/2 ML VIAL IVP STA (09:52)
[2019-10-25] MEDS ORDERED: SODIUM CHLORIDE 0.9% 1,000 ML IV ONE (09:52)
[2019-10-25 09:59] LABS: BASOPHILS # (AUTO) 0.1 10^3/uL (0.0-0.1); BASOPHILS % (AUTO) 0.9 %; EOSINOPHILS # (AUTO) 0.1 10^3/uL (0.0-0.7); EOSINOPHILS % (AUTO) 1.3 %; HGB - HEMOGLOBIN 11.9 g/dL (12.0-16.0); LYMPHOCYTES # (AUTO) 2.3 10^3/uL (1.5-3.5); LYMPHOCYTES % (AUTO) 25.4 %; MEAN CORPUSCULAR HEMOGLOBIN 29.4 pg (27.0-31.0); MEAN CORPUSCULAR HGB CONC 31.3 g/dL (32.0-36.0); MEAN CORPUSCULAR VOLUME 93.8 fL (81.0-99.0); MEAN PLATELET VOLUME 10.2 fL (7.9-10.8); MONOCYTES # (AUTO) 0.5 10^3/uL (0.0-1.0); MONOCYTES % (AUTO) 5.6 %; NEUTROPHILS % (AUTO) 66.5 %; PLT - PLATELET COUNT 326 10^3/uL (130-450); RED BLOOD COUNT 4.05 10^6/uL (4.20-5.40); RED CELL DISTRIBUTION WIDTH 15.2 % (12.0-15.0)
[2019-10-25 10:12] LABS: ALBUMIN/GLOBULIN RATIO 1.1 (1.0-2.2); BILIRUBIN,TOTAL 0.4 mg/dL (0.2-1.0); CALCIUM 8.8 mg/dL (8.5-10.3); CREATININE 0.6 mg/dL (0.4-1.0); TOTAL PROTEIN 7.6 g/dL (6.7-8.2)
[2019-10-25 10:14] LABS: BILIRUBIN,URINE NEGATIVE (NEGATIVE); GLUCOSE, URINE (UA) NEGATIVE (NEGATIVE); KETONES,URINE (UA) NEGATIVE (NEGATIVE); LEUKOCYTE ESTERASE, URINE NEGATIVE (NEGATIVE)
[2019-10-25 10:15] LABS: CLARITY,URINE CLEAR (CLEAR)
[2019-10-25 10:17] LABS: HCG UR QUAL NEGATIVE
[2019-10-25 10:21] LABS: BACTERIA,URINE Few /HPF (None Seen); SQUAMOUS EPITHELIAL CELL,UR FEW Squamous (<= Few)
[2019-10-25] MEDS ORDERED: cefTRIAXone 1 GM VIAL IVP STA (10:51)
--- NOTE | 2019-10-25 11:06 | CT Report ---
Reason: left flank pain abrupt Procedure Date: 10/25/2019 Accession Number: [id number] / [id number] Procedure: CT - Abdomen/Pelvis WO CPT Code: Final Report FULL RESULT: EXAM: CT ABDOMEN AND PELVIS (CT KUB) EXAM DATE: 10/25/2019 10:15 AM. CLINICAL HISTORY: Left flank pain abrupt. COMPARISONS: CT ABDOMEN/PELVIS W/WO 08/17/2018 1:24 PM. TECHNIQUE: Routine axial helical CT imaging was performed through the abdomen and pelvis without IV contrast. Reconstructions: Coronal and sagittal. In accordance with CT protocol optimization, one or more of the following dose reduction techniques were utilized for this exam: automated exposure control, adjustment of mA and/or KV based on patient size, or use of iterative reconstructive technique. FINDINGS: Lung Bases: Unremarkable. Right Kidney/Ureter: No stones, hydronephrosis, or hydroureter. No perinephric fat stranding. Left Kidney/Ureter: There is a 3 mm nonobstructing calyceal stone in the lower interpolar region of the left kidney (series 3 image 66). There is a probable subtle punctate calcification at this location on prior CT on 08/17/2018. Previously, there was a 2-3 mm calcification in the interpolar region just superior to this, which is no longer visualized. No left-sided hydronephrosis or hydroureter. No perinephric fat stranding. Other Solid Organs: Noncontrast images of the solid organs are grossly unremarkable. Gallbladder/Bile Ducts: Unremarkable. Peritoneal Cavity: No free fluid, free air or chelsea adenopathy. Bowel is grossly unremarkable. No evidence of bowel obstruction or abnormal colonic stool burden. The appendix is well-visualized and normal. Pelvic Organs: No bladder stones or wall thickening. There are several calcified phleboliths in the pelvis which are unchanged compared to 08/17/2018. Noncontrast images of the visualized pelvic organs are unremarkable. Vasculature: Unremarkable. Other: There are mild degenerative disk changes of the lower thoracic and upper lumbar spine. No acute osseous abnormality. There is a small fat-containing umbilical hernia. IMPRESSION: 1. There is a 3 mm nonobstructing calyceal stone in the lower interpolar region of the left kidney. Previously on 08/17/2018, there was a punctate calcification in this location and a 2-3 mm nonobstructing calyceal calcification just superior to this. The more superior calcification is no longer visualized. No left-sided hydronephrosis or hydroureter. 2. No right-sided urinary tract stones or obstruction. RADIA
[2019-10-25 11:54] VITALS: BP 128/70
== END 2019-10-25 11:53 | disposition home or self-care (01) ==
LOC: ED 09:10
DX: N20.1 Calculus of ureter (principal); N30.00 Acute cystitis without hematuria; Z87.442 Personal history of urinary calculi
CPT/HCPCS: 36415; 74176; 80053; 81003; 81025; 83605; 83690; 85025; 96361; 96374; 96375; 99284; 99285; J1170; 81001; 87086

== ENCOUNTER 2020-02-16 10:45 | Outpatient (CLI) | payer BC, OTHER | END 2020-02-16 23:59 | disposition home or self-care (01) | LOC: LAB.WCP 10:45 | PROVIDERS: ATTEND Physician Assistant Medical | DX: R05 Cough (principal); Z20.828 Contact with and (suspected) exposure to other viral communicable diseases | CPT/HCPCS: 81599 ==

== ENCOUNTER 2020-02-18 08:10 | Outpatient (CLI) | payer BC, OTHER ==
--- NOTE | 2020-02-18 10:27 | XRAY Report ---
IMPRESSION: PROCEDURE: Chest 2 View X-Ray INDICATIONS: COUGH TECHNIQUE: Two view(s) of the chest. COMPARISON: None. FINDINGS: Surgical changes and devices: None. Lungs and pleura: No pleural effusions or pneumothorax. Lungs are clear. Mediastinum: Mediastinal contours are normal. Heart size is normal. Bones and chest wall: No suspicious bony abnormalities. Soft tissues appear unremarkable. IMPRESSION: No acute cardiopulmonary process demonstrated radiographically. Reviewed by: Rm Frye MD on 02/18/2020 10:25 AM PDT Approved by: Rm Frye MD on 02/18/2020 10:25 AM PDT Station ID: [id number]
== END 2020-02-18 08:11 | disposition home or self-care (01) ==
LOC: DI 08:10
PROVIDERS: ATTEND Physician Assistant Medical
DX: R05 Cough (principal)
CPT/HCPCS: 71046

== ENCOUNTER 2020-05-03 11:16 | Outpatient (CLI) | payer BC, OTHER | END 2020-05-03 11:17 | disposition home or self-care (01) | LOC: LAB 11:16 | PROVIDERS: ATTEND Surgery | DX: R05 Cough (principal); Z20.828 Contact with and (suspected) exposure to other viral communicable diseases; R53.83 Other fatigue; R10.30 Lower abdominal pain, unspecified | CPT/HCPCS: 36415; 86769 ==

== ENCOUNTER 2020-06-04 19:12 | Emergency (ER) | payer BC, OTHER ==
[2020-06-04 20:13] LABS: BASOPHILS # (AUTO) 0.1 10^3/uL (0.0-0.1); BASOPHILS % (AUTO) 0.6 %; EOSINOPHILS # (AUTO) 0.1 10^3/uL (0.0-0.7); EOSINOPHILS % (AUTO) 0.6 %; HGB - HEMOGLOBIN 13.1 g/dL (12.0-16.0); LYMPHOCYTES # (AUTO) 3.6 10^3/uL (1.5-3.5); LYMPHOCYTES % (AUTO) 26.2 %; MEAN CORPUSCULAR HGB CONC 31.7 g/dL (32.0-36.0); MEAN CORPUSCULAR VOLUME 94.5 fL (81.0-99.0); MONOCYTES # (AUTO) 0.7 10^3/uL (0.0-1.0); MONOCYTES % (AUTO) 5.4 %; NEUTROPHILS # (AUTO) 9.1 10^3/uL (1.5-6.6); NEUTROPHILS % (AUTO) 66.8 %; PLT - PLATELET COUNT 367 10^3/uL (130-450); RED BLOOD COUNT 4.37 10^6/uL (4.20-5.40); RED CELL DISTRIBUTION WIDTH 12.8 % (12.0-15.0); WHITE BLOOD COUNT 13.7 x10^3/uL (4.8-10.8)
[2020-06-04] MEDS ORDERED: LORazepam 2 MG/ML VIAL IVP STA (20:24)
[2020-06-04] MEDS ORDERED: SODIUM CHLORIDE 0.9% 1,000 ML IV STA ×2 (20:24)
[2020-06-04 20:26] LABS: ALBUMIN 4.3 g/dL (3.2-5.5); BILIRUBIN,TOTAL 0.4 mg/dL (0.2-1.0); CALCIUM 9.3 mg/dL (8.5-10.3); CREATININE 0.8 mg/dL (0.4-1.0); TOTAL PROTEIN 8.6 g/dL (6.7-8.2)
--- NOTE | 2020-06-04 20:46 | ED Physician Documentation ---
History of Present Illness - Stated complaint Stated Complaint: DIZZINESS, CONFUSION - Chief complaint Chief Complaint: Abd Pain - History obtained from History obtained from: Patient - History of Present Illness Timing: How many days ago (2-3) Pain level max: 0 Pain level now: 0 - Additonal information Additional information: 34-year-old female presents to the emergency department stating she is felt generally unwell for the past few days. She states she feels lightheaded and dizzy, like the room is spinning around her. Worse with moving her head. She states occasionally she has "zings" throughout her body from her head all the way down to her toes and hands. This lasts for a few minutes at a time. Currently is asymptomatic. No fever. No chills. No vomiting. Occasional cough. 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 : Kidney stones HEENT: None Psych: Depression, Anxiety Musculoskeletal: Scoliosis, Chronic back pain, Other Derm: None Other Past Medical History: 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 - Past Surgical History Past Surgical History: Yes General: Cholecystectomy, Colonoscopy, 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, Tubal ligation, Hysterectomy HEENT: Tonsil/Adenoidectomy - Present Medications Home Medications: Ambulatory Orders Medication Instructions Recorded Confirmed Zolpidem [Ambien] 10 mg PO PRN PRN 03/21/16 05/11/20 Duloxetine HCl [Cymbalta] 60 mg PO DAILY 07/01/19 05/11/20 Gabapentin 300 mg PO TID 07/01/19 05/11/20 Cyclobenzaprine [Flexeril] 10 mg PO TID PRN #20 tablet 09/11/19 05/11/20 Oxycodone HCl/Acetaminophen 1 - 2 each PO Q6H PRN #14 tablet 09/11/19 05/11/20 [Percocet 5-325 mg Tablet] Bupropion HCl [Wellbutrin Xl] 300 mg DAILY 10/25/19 05/11/20 Sulfamethox/Trimeth 800/160 1 each PO BID #10 tablet 10/25/19 05/11/20 [Bactrim Ds 800/160] Oxycodone HCl/Acetaminophen 1 tab PO TID PRN 12/30/19 05/11/20 [Oxycodone-Acetaminophen 5-325] predniSONE [Deltasone] 10 mg PO [id number] #42 tab 06/04/20 - Allergies Allergies/Adverse Reactions: Allergies Allergy/AdvReac Type Severity Reaction Status Date / Time acetazolamide Allergy Severe Anaphylaxis Verified 06/04/20 19:25 [From Diamox Sequels] morphine Allergy Severe Anaphylaxis Verified 06/04/20 19:25 Penicillins Allergy Unknown Unknown Verified 06/04/20 19:25 adhesive tape AdvReac Intermediate Rash Verified 06/04/20 19:25 codeine phosphate * AdvReac Intermediate Nausea Verified 06/04/20 19:25 [From Tylenol-Codeine] fentanyl AdvReac blindness, Verified 06/04/20 19:25 drowsey and stays in system long time - Social History Does the pt smoke?: No Smoking Status: Never smoker Does the pt drink ETOH?: Yes Does the pt have substance abuse?: No - Immunizations Immunizations are current?: Yes - POLST Patient has POLST: No PD ED PE NORMAL - Vitals Vital signs reviewed: Yes - General General: Alert and oriented X 3, No acute distress, Well developed/nourished - HEENT HEENT: PERRL, Ears normal, Moist mucous membranes, Pharynx benign - Neck Neck: Supple, no meningeal sign - Cardiac Cardiac: RRR, Strong equal pulses - Respiratory Respiratory: No respiratory distress, Clear bilaterally - Abdomen Abdomen: Soft, Non tender, Non distended - Derm Derm: Warm and dry - Extremities Extremities: No edema, No calf tenderness / cord - Neuro 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, 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 Horizontal nystagmus to the right) Eye Opening: Spontaneous Motor: Obeys Commands Verbal: Oriented GCS Score: 15 - Psych Psych: Normal mood, Normal affect Results - Vitals Vitals: Vital Signs - 24 hr 06/04/20 06/04/20 19:20 22:03 Temperature 37.8 C H Heart Rate 105 H 87 Respiratory 18 15 Rate Blood Pressure 139/92 H 137/82 H O2 Saturation 100 100 Oxygen O2 Source Room air - Labs Labs: Laboratory Tests 06/04/20 06/04/20 06/04/20 20:07 20:07 21:20 WBC 13.7 H RBC 4.37 Hgb 13.1 Hct 41.3 MCV 94.5 MCH 30.0 MCHC 31.7 L RDW 12.8 Plt Count 367 MPV 10.0 Neut # (Auto) 9.1 H Lymph # (Auto) 3.6 H [place] # (Auto) 0.7 Eos # (Auto) 0.1 Baso # (Auto) 0.1 Absolute Nucleated RBC 0.00 Nucleated RBC % 0.0 Sodium 139 Potassium 3.7 Chloride 101 Carbon Dioxide 27 Anion Gap 11.0 BUN 13 Creatinine 0.8 Estimated GFR (MDRD) 82 L Glucose 109 H Calcium 9.3 Total Bilirubin 0.4 AST 16 ALT 16 Alkaline Phosphatase 116 Total Protein 8.6 H Albumin 4.3 Globulin 4.3 H Albumin/Globulin Ratio 1.0 Lipase 18 L Urine Color YELLOW Urine Clarity CLEAR Urine pH 6.0 Ur Specific [place] 1.025 Urine Protein NEGATIVE Urine Glucose (UA) NEGATIVE Urine Ketones NEGATIVE Urine Occult Blood NEGATIVE Urine Nitrite NEGATIVE Urine Bilirubin NEGATIVE Urine Urobilinogen 0.2 (NORMAL) Ur Leukocyte Esterase NEGATIVE Ur Microscopic Review NOT INDICATED Urine Culture Comments NOT INDICATED Urine HCG, Qual NEGATIVE - Rads (name of study) cxr Radiology: Prelim report reviewed, EMP read contemporaneously, See rad report (no acute disease) PD MEDICAL DECISION MAKING - ED course Complexity details: reviewed results, re-evaluated patient, considered differential, d/w patient, d/w family ED course: Patient with what appears to be vertigo. Possible labyrinthitis. We will place her prednisone taper for home. She has meclizine at home. Normal neurological exam other than the nystagmus and Hallpike positive. Worse to the right. Normal cerebellar test. Feels better after IV fluids, Benadryl, Ativan. Patient counseled regarding signs and symptoms for which I believe and urgent re-evaluation would be necessary. Patient with good understanding of and agreement to plan and is comfortable going home at this time This document was made in part using voice recognition software. While efforts are made to proofread this document, sound alike and grammatical errors may occur. Departure - Departure Disposition: 01 Home, Self Care Clinical Impression: Vertigo, Labyrinthitis of right ear Condition: Good Instructions: ED Vertigo Unspecified Follow-Up: your,doctor in 1 week [Other] Prescriptions: predniSONE [Deltasone] 10 mg PO [id number] #42 tab Comments: You can try meclizine and Benadryl at home as well. We will place you on a steroid taper. Follow-up with your doctor in 1 week for repeat evaluation. Return sooner if you worsen.
[2020-06-04 21:26] LABS: BILIRUBIN,URINE NEGATIVE (NEGATIVE); GLUCOSE, URINE (UA) NEGATIVE (NEGATIVE); KETONES,URINE (UA) NEGATIVE (NEGATIVE); LEUKOCYTE ESTERASE, URINE NEGATIVE (NEGATIVE); NITRITE,URINE NEGATIVE (NEGATIVE); OCCULT BLOOD,URINE NEGATIVE (NEGATIVE); PROTEIN,URINE NEGATIVE (NEGATIVE); UROBILINOGEN,URINE 0.2 (NORMAL) E.U./dL (NORMAL)
--- NOTE | 2020-06-04 21:32 | XRAY Report ---
PROCEDURE: Chest 1 View X-Ray INDICATIONS: cough TECHNIQUE: One view of the chest was acquired. COMPARISON: CXR 02/18/2020. CT abdomen and pelvis 10/25/2019. FINDINGS: Surgical changes and devices: Suture material in the region of the stomach. Lungs and pleura: No pleural effusions or pneumothorax. Lungs are clear. Mediastinum: Mediastinal contours appear normal. Heart size is normal. Bones and chest wall: No suspicious bony lesions. Overlying soft tissues appear unremarkable. IMPRESSION: No acute cardiopulmonary abnormality. Reviewed by: Rohan Hicks MD on 06/04/2020 9:30 PM PDT Approved by: Rohan Hicks MD on 06/04/2020 9:30 PM PDT Station ID: [id number]
[2020-06-04 21:33] LABS: CLARITY,URINE CLEAR (CLEAR); HCG UR QUAL NEGATIVE
[2020-06-04] MEDS ORDERED: diphenhydrAMINE INJ 50 MG/ML VIAL IVP STA (21:58)
[2020-06-04] MEDS ORDERED: predniSONE 20 MG TABLET PO STA (21:58)
[2020-06-04 22:23] VITALS: BP 126/85
== END 2020-06-04 22:23 | disposition home or self-care (01) ==
LOC: ED 19:12
DX: H81.01 Meniere's disease, right ear (principal); H55.09 Other forms of nystagmus; Z20.828 Contact with and (suspected) exposure to other viral communicable diseases
CPT/HCPCS: 36415; 71045; 80053; 81003; 81025; 83690; 85025; 87635; 96374; 96375; 99284; J1200; J2060; J7512; 81001; 87086

== ENCOUNTER 2020-06-18 14:00 | Emergency (ER) | payer OTHER ==
[2020-06-18] MEDS ORDERED: KETOROLAC 30 MG/ML VIAL IVP STA (14:22)
[2020-06-18] MEDS ORDERED: SODIUM CHLORIDE 0.9% 1,000 ML IV STA (14:22)
[2020-06-18] MEDS ORDERED: HALOPERIDOL 5 MG/ML VIAL IVP ONE (14:22)
--- NOTE | 2020-06-18 14:24 | ED Physician Documentation ---
PD HPI FOCAL NEURO - Stated complaint Stated Complaint: VERTIGO/ZEE - Chief complaint Chief Complaint: Neuro - History obtained from History obtained from: Patient - Additional information Additional information: 34yo F With history of migraines, pseudotumor cerebri he resolved after her gastric bypass with noted allergy to Diamox, she was seen here 3 weeks ago for vertigo. She was diagnosed with viral labyrinthitis and started on a steroid taper which was not helpful. For the last 4 to 5 days she has had severe gradual onset frontal headache like a vice across her temples. She describes the dizziness as spinning, room spinning, worse when she turns her head to the right. She has been nauseous with this. She tried Percocet and Maxalt without relief. 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 : Kidney stones HEENT: None Psych: Depression, Anxiety Musculoskeletal: Scoliosis, Chronic back pain, Other Derm: None - Past Surgical History Past Surgical History: Yes General: Cholecystectomy, Colonoscopy, 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: 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, Tubal ligation, Hysterectomy HEENT: Tonsil/Adenoidectomy - Present Medications Home Medications: Ambulatory Orders Medication Instructions Recorded Confirmed Zolpidem [Ambien] 6.25 mg PO DAILY PM PRN 03/21/16 06/18/20 Duloxetine HCl [Cymbalta] 60 mg PO DAILY 07/01/19 06/18/20 Gabapentin 300 mg PO TID 07/01/19 06/18/20 Bupropion HCl [Wellbutrin Xl] 300 mg ORAL DAILY 10/25/19 06/18/20 Oxycodone HCl/Acetaminophen 1 tab PO TID PRN 12/30/19 05/11/20 [Oxycodone-Acetaminophen 5-325] Meclizine [Antivert] 25 mg PO Q6H PRN #20 tablet 06/18/20 Metoclopramide [Reglan] 10 mg PO Q6H PRN #20 tablet 06/18/20 - Allergies Allergies/Adverse Reactions: Allergies Allergy/AdvReac Type Severity Reaction Status Date / Time acetazolamide Allergy Severe Anaphylaxis Verified 06/18/20 14:10 [From Diamox Sequels] morphine Allergy Severe Anaphylaxis Verified 06/18/20 14:10 Penicillins Allergy Unknown Unknown Verified 06/18/20 14:10 adhesive tape AdvReac Intermediate Rash Verified 06/18/20 14:10 codeine phosphate * AdvReac Intermediate Nausea Verified 06/18/20 14:10 [From Tylenol-Codeine] fentanyl AdvReac blindness, Verified 06/18/20 14:10 drowsey and stays in system long time - Social History Does the pt smoke?: No Smoking Status: Never smoker Does the pt drink ETOH?: Yes Does the pt have substance abuse?: No - Immunizations Immunizations are current?: Yes - POLST Patient has POLST: No PD ED PE NORMAL - Vitals Vital signs reviewed: Yes - General General: Alert and oriented X 3, No acute distress - HEENT HEENT: PERRL, EOMI, Ears normal, Pharynx benign, Dentition benign - Neck Neck: Supple, no meningeal sign, No bony TTP - Cardiac Cardiac: RRR, No murmur - Respiratory Respiratory: No respiratory distress, Clear bilaterally - Abdomen Abdomen: Non tender - Back Back: No CVA TTP, No spinal TTP - Derm Derm: Normal color, Warm and dry - Extremities Extremities: No edema, No calf tenderness / cord - Neuro 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, 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, No motor deficit, No sensory deficit, Normal speech Eye Opening: Spontaneous Motor: Obeys Commands Verbal: Oriented GCS Score: 15 Results - Vitals Vitals: Vital Signs - 24 hr 06/18/20 06/18/20 06/18/20 14:03 14:49 15:18 Temperature 36.2 C L 36.8 C 36.8 C Heart Rate 79 68 71 Respiratory 18 14 14 Rate Blood Pressure 133/75 H 128/83 H 139/80 H O2 Saturation 99 98 97 Oxygen O2 Source Room air - Labs Labs: Laboratory Tests 06/18/20 06/18/20 06/18/20 14:30 14:40 14:40 WBC 10.9 H RBC 4.13 L Hgb 12.3 Hct 39.1 MCV 94.7 MCH 29.8 MCHC 31.5 L RDW 13.0 Plt Count 363 MPV 9.8 Neut # (Auto) 7.3 H Lymph # (Auto) 2.7 [place] # (Auto) 0.6 Eos # (Auto) 0.1 Baso # (Auto) 0.1 Absolute Nucleated RBC 0.00 Nucleated RBC % 0.0 Sodium 136 Potassium 3.8 Chloride 104 Carbon Dioxide 24 Anion Gap 8.0 BUN 17 Creatinine 0.7 Estimated GFR (MDRD) 95 Glucose 93 Calcium 8.7 Urine Color YELLOW Urine Clarity CLEAR Urine pH 5.0 Ur Specific [place] >=1.030 H Urine Protein NEGATIVE Urine Glucose (UA) NEGATIVE Urine Ketones NEGATIVE Urine Occult Blood NEGATIVE Urine Nitrite NEGATIVE Urine Bilirubin NEGATIVE Urine Urobilinogen 0.2 (NORMAL) Ur Leukocyte Esterase NEGATIVE Ur Microscopic Review NOT INDICATED Urine Culture Comments NOT INDICATED Urine Opiates Screen NEGATIVE Ur Oxycodone Screen POSITIVE H Urine Methadone Screen NEGATIVE Ur Propoxyphene Screen NEGATIVE Ur Barbiturates Screen NEGATIVE Ur Tricyclics Screen NEGATIVE Ur Phencyclidine Scrn NEGATIVE Ur Amphetamine Screen NEGATIVE U Methamphetamines Scrn NEGATIVE U Benzodiazepines Scrn NEGATIVE Urine Cocaine Screen NEGATIVE U Cannabinoids Screen NEGATIVE PD MEDICAL DECISION MAKING - ED course ED course: 34-year-old woman with now almost subacute vertigo though worsening headache. CT imaging was done and normal. Headache was a 3 after the administration of Haldol and IV fluids and patient requested discharge. Departure - Departure Disposition: 01 Home, Self Care Clinical Impression: Vertigo Headache Qualifiers: Headache type: unspecified Headache chronicity pattern: acute headache Intractability: not intractable Qualified Code(s): R51.9 - Headache, unspecified Condition: Good Record reviewed to determine appropriate education?: Yes Instructions: ED Vertigo Unspecified Prescriptions: Meclizine [Antivert] 25 mg PO Q6H PRN #20 tablet PRN Reason: Dizziness Metoclopramide [Reglan] 10 mg PO Q6H PRN #20 tablet PRN Reason: nausea or headache Comments: Work-up today, a CT of your head was unremarkable. Labs were all basically normal. Return if worsening. Follow-up with your primary care physician. If the vertigo is persistent, consider ear nose and throat referral and evaluation. Do not drink or drive while taking meclizine or Reglan.
[2020-06-18 14:37] LABS: MUDS CUTOFF CONCENTRATIONS CUTOFF CONC BELOW:
[2020-06-18 14:39] LABS: BILIRUBIN,URINE NEGATIVE (NEGATIVE); GLUCOSE, URINE (UA) NEGATIVE (NEGATIVE); KETONES,URINE (UA) NEGATIVE (NEGATIVE); LEUKOCYTE ESTERASE, URINE NEGATIVE (NEGATIVE); NITRITE,URINE NEGATIVE (NEGATIVE); OCCULT BLOOD,URINE NEGATIVE (NEGATIVE); PROTEIN,URINE NEGATIVE (NEGATIVE); UROBILINOGEN,URINE 0.2 (NORMAL) E.U./dL (NORMAL)
[2020-06-18 14:41] LABS: CLARITY,URINE CLEAR (CLEAR)
[2020-06-18 14:50] LABS: AMPHETAMINE SCREEN,URINE NEGATIVE (NEGATIVE); BENZODIAZEPINES SCREEN, URINE NEGATIVE (NEGATIVE); COCAINE SCREEN URINE NEGATIVE (NEGATIVE); METHADONE SCREEN, URINE NEGATIVE (NEGATIVE); METHAMPHETAMINES SCREEN, URINE NEGATIVE (NEGATIVE); OPIATE SCREEN, URINE NEGATIVE (NEGATIVE); OXYCODONE SCREEN, URINE POSITIVE (NEGATIVE); PROPOXYPHENE SCREEN, URINE NEGATIVE (NEGATIVE); TRICYCLIC ANTIDEPRESSANT,URINE NEGATIVE (NEGATIVE)
[2020-06-18 14:53] LABS: BASOPHILS # (AUTO) 0.1 10^3/uL (0.0-0.1); BASOPHILS % (AUTO) 0.6 %; EOSINOPHILS # (AUTO) 0.1 10^3/uL (0.0-0.7); EOSINOPHILS % (AUTO) 0.8 %; HGB - HEMOGLOBIN 12.3 g/dL (12.0-16.0); LYMPHOCYTES # (AUTO) 2.7 10^3/uL (1.5-3.5); MEAN CORPUSCULAR HEMOGLOBIN 29.8 pg (27.0-31.0); MEAN CORPUSCULAR HGB CONC 31.5 g/dL (32.0-36.0); MEAN CORPUSCULAR VOLUME 94.7 fL (81.0-99.0); MEAN PLATELET VOLUME 9.8 fL (7.9-10.8); MONOCYTES # (AUTO) 0.6 10^3/uL (0.0-1.0); MONOCYTES % (AUTO) 5.9 %; NEUTROPHILS # (AUTO) 7.3 10^3/uL (1.5-6.6); NEUTROPHILS % (AUTO) 67.2 %; PLT - PLATELET COUNT 363 10^3/uL (130-450); RED BLOOD COUNT 4.13 10^6/uL (4.20-5.40); WHITE BLOOD COUNT 10.9 x10^3/uL (4.8-10.8)
[2020-06-18 15:06] LABS: CALCIUM 8.7 mg/dL (8.5-10.3); CREATININE 0.7 mg/dL (0.4-1.0)
--- NOTE | 2020-06-18 15:07 | CT Report ---
PROCEDURE: HEAD WO INDICATIONS: headache TECHNIQUE: Noncontrast 4.5 mm thick angled axial sections acquired from the foramen magnum to the vertex. For r adiation dose reduction, the following was used: automated exposure control, adjustment of mA and/or kV according to patient size. COMPARISON: None. FINDINGS: Image quality: Excellent. CSF spaces: Basal cisterns are patent. No extra-axial fluid collections. Ventricles are normal in size and shape. Brain: No midline shift. No intracranial masses or hemorrhage. Al-white matter interface is norm al. Skull and face: Calvarium and visualized facial bones are intact, without suspicious lesions. Sinuses: Visualized sinuses and mastoids are clear. IMPRESSION: CT head without acute intracranial abnormalities. No mass or mass effect identified. Reviewed by: Terrance Askew MD on 06/18/2020 2:06 PM [facility] Approved by: Terrance Askew MD on 06/18/2020 2:06 PM [facility] Station ID: [id number]
[2020-06-18 16:04] VITALS: BP 148/88
== END 2020-06-18 16:07 | disposition home or self-care (01) ==
LOC: ED 14:00
DX: R42 Dizziness and giddiness (principal); R51.9 Headache, unspecified
CPT/HCPCS: 36415; 70450; 80048; 80306; 81001; 81003; 85025; 87086; 96361; 96374; 99284

== ENCOUNTER 2020-11-18 12:37 | Emergency (ER) | payer BC, OTHER ==
--- OUTSIDE RECORDS SUMMARY | 2020-11-18 12:41 | EXTERNAL MEDICAL SUMMARY RPT | Continuity of Care Document ---
:1985 Demographics Phone Unavailable Preferred Language Tuvaluan Marital Status Unknown Yarsani Affiliation Unknown Race Unknown Ethnic Group Unknown Author Organization [facility] Address [address] [place] [address] Phone Care Team Providers Name Role Phone Vinnie Unavailable Unavailable Problems date description facility [id number] Unspecified abdominal pain [facility] Social History date description facility [id number]
[2020-11-18 13:13] LABS: BILIRUBIN,URINE NEGATIVE (NEGATIVE); CLARITY,URINE CLEAR (CLEAR); GLUCOSE, URINE (UA) NEGATIVE (NEGATIVE); KETONES,URINE (UA) NEGATIVE (NEGATIVE); LEUKOCYTE ESTERASE, URINE NEGATIVE (NEGATIVE); NITRITE,URINE NEGATIVE (NEGATIVE); OCCULT BLOOD,URINE NEGATIVE (NEGATIVE); PH,URINE 6.5 PH (5.0-7.5); PROTEIN,URINE NEGATIVE (NEGATIVE); UROBILINOGEN,URINE 1 (NORMAL) E.U./dL (NORMAL)
[2020-11-18 13:14] LABS: HCG UR QUAL NEGATIVE
[2020-11-18 13:20] LABS: BASOPHILS # (AUTO) 0.1 10^3/uL (0.0-0.1); BASOPHILS % (AUTO) 0.5 %; EOSINOPHILS # (AUTO) 0.1 10^3/uL (0.0-0.7); EOSINOPHILS % (AUTO) 0.7 %; HGB - HEMOGLOBIN 12.2 g/dL (12.0-16.0); LYMPHOCYTES # (AUTO) 2.6 10^3/uL (1.5-3.5); LYMPHOCYTES % (AUTO) 23.6 %; MEAN CORPUSCULAR HEMOGLOBIN 29.8 pg (27.0-31.0); MEAN CORPUSCULAR VOLUME 90.2 fL (81.0-99.0); MEAN PLATELET VOLUME 10.6 fL (7.9-10.8); MONOCYTES # (AUTO) 0.7 10^3/uL (0.0-1.0); NEUTROPHILS # (AUTO) 7.6 10^3/uL (1.5-6.6); NEUTROPHILS % (AUTO) 68.9 %; PLT - PLATELET COUNT 312 10^3/uL (130-450); RED CELL DISTRIBUTION WIDTH 13.3 % (12.0-15.0); WHITE BLOOD COUNT 11.1 x10^3/uL (4.8-10.8)
--- OUTSIDE RECORDS SUMMARY | 2020-11-18 13:22 | EXTERNAL MEDICAL SUMMARY RPT | Continuity of Care Document ---
:1985 Demographics Phone Unavailable Preferred Language Burkinan Marital Status Unknown Voodoo Affiliation Unknown Race Unknown Ethnic Group Unknown Author Organization [facility] Address [address] [phone] Phone Care Team Providers Name Role Phone Vinnie Unavailable Unavailable Problems date description facility [id number] Unspecified abdominal pain [facility] Social History date description facility [id number]
[2020-11-18 13:34] LABS: ALBUMIN 4.2 g/dL (3.2-5.5); ALBUMIN/GLOBULIN RATIO 1.1 (1.0-2.2); BILIRUBIN,TOTAL 0.5 mg/dL (0.2-1.0); CREATININE 0.6 mg/dL (0.4-1.0); POTASSIUM 3.6 mmol/L (3.5-5.0)
[2020-11-18] MEDS ORDERED: HYDROmorphone 1 MG/ML CARPUJECT IM STA ×2 (14:38→16:14)
[2020-11-18] MEDS ORDERED: ONDANSETRON ODT 4 MG TABLET TL STA (14:38)
--- NOTE | 2020-11-18 14:44 | ED Physician Documentation ---
History of Present Illness - Stated complaint Stated Complaint: LT FLANK PX - Chief complaint Chief Complaint: Abd Pain - History obtained from History obtained from: Patient - History of Present Illness Timing: Today Pain level max: 9 Pain level now: 9 - Additonal information Additional information: Patient is a 35-year-old female who presents to the emergency department left flank pain today. Similar to prior kidney stones in the past. She states she has had an 8 mm stone on the left side in the past. Last CT was about 6 months ago. No fevers. No chills. Nothing makes it better or worse. No urinary symptoms. T-max 100.2 at home. Currently afebrile. Denies any possibility of . No other abdominal pain. Does have some nausea no vomiting. History of recurrent renal stones. Review of Systems Ten Systems: 10 systems reviewed and negative Constitutional: denies: Fever, Chills Throat: denies: Sore throat Cardiac: denies: Chest pain / pressure Respiratory: denies: Cough, Wheezing GI: denies: Vomiting, Diarrhea, Hematemesis, Bloody / black stool : denies: Dysuria, Frequency, Hesitancy, Unable to Void, Incontinent, Now EGA Skin: denies: Rash Musculoskeletal: denies: Neck pain, Back pain Neurologic: denies: Headache PD PAST MEDICAL HISTORY - Past Medical History Cardiovascular: None Respiratory: None Neuro: Migraines Endocrine/Autoimmune: None GI: None COOPERATIVE EDUCATION COORDINATOR: None : Kidney stones HEENT: None Psych: Depression, Anxiety Musculoskeletal: Scoliosis, Chronic back pain, Other Derm: None - Past Surgical History Past Surgical History: Yes General: Cholecystectomy, Colonoscopy, Other /COOPERATIVE EDUCATION COORDINATOR: section, Tubal ligation, Hysterectomy HEENT: Tonsil/Adenoidectomy - Present Medications Home Medications: Ambulatory Orders Medication Instructions Recorded Confirmed Zolpidem [Ambien] 6.25 mg PO DAILY PM PRN 03/21/16 11/18/20 Bupropion HCl [Wellbutrin Xl] 300 mg ORAL DAILY 10/25/19 11/18/20 Meclizine [Antivert] 25 mg PO Q6H PRN #20 tablet 06/18/20 11/18/20 Citalopram [CeleXA] 20 mg PO DAILY 11/18/20 11/18/20 Ondansetron Odt [Zofran] 4 mg TL Q6H PRN #10 tablet 11/18/20 Oxycodone HCl/Acetaminophen 1 - 2 each PO Q6H PRN #14 tablet 11/18/20 [Percocet 5-325 mg Tablet] - Allergies Allergies/Adverse Reactions: Allergies Allergy/AdvReac Type Severity Reaction Status Date / Time acetazolamide Allergy Severe Anaphylaxis Verified 06/18/20 14:10 [From Diamox Sequels] morphine Allergy Severe Anaphylaxis Verified 06/18/20 14:10 Penicillins Allergy Unknown Unknown Verified 06/18/20 14:10 adhesive tape AdvReac Intermediate Rash Verified 06/18/20 14:10 codeine phosphate * AdvReac Intermediate Nausea Verified 06/18/20 14:10 [From Tylenol-Codeine] fentanyl AdvReac blindness, Verified 06/18/20 14:10 drowsey and stays in system long time - Social History Does the pt smoke?: No Smoking Status: Never smoker Does the pt drink ETOH?: Yes Does the pt have substance abuse?: No - Immunizations Immunizations are current?: Yes - POLST Patient has POLST: No PD ED PE NORMAL - Vitals Vital signs reviewed: Yes - General General: Alert and oriented X 3, No acute distress, Well developed/nourished - HEENT HEENT: Moist mucous membranes - Neck Neck: Supple, no meningeal sign - Cardiac Cardiac: RRR, Strong equal pulses - Respiratory Respiratory: No respiratory distress, Clear bilaterally - Abdomen Abdomen: Soft, Non tender, Non distended - Back Back: No CVA TTP, No spinal TTP - Derm Derm: Warm and dry - Extremities Extremities: No edema - Neuro 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 - Psych Psych: Normal mood, Normal affect Results - Vitals Vitals: Vital Signs - 24 hr 11/18/20 11/18/20 11/18/20 12:49 15:07 16:53 Temperature 37.0 C 36.9 C 36.9 C Heart Rate 83 70 78 Respiratory 16 16 18 Rate Blood Pressure 140/72 H 136/88 H 133/81 H O2 Saturation 99 100 100 Oxygen O2 Source Room air - Labs Labs: Laboratory Tests 11/18/20 11/18/20 11/18/20 12:50 13:15 13:15 WBC 11.1 H RBC 4.10 L Hgb 12.2 Hct 37.0 MCV 90.2 MCH 29.8 MCHC 33.0 RDW 13.3 Plt Count 312 MPV 10.6 Neut # (Auto) 7.6 H Lymph # (Auto) 2.6 [place] # (Auto) 0.7 Eos # (Auto) 0.1 Baso # (Auto) 0.1 Absolute Nucleated RBC 0.00 Nucleated RBC % 0.0 Sodium 140 Potassium 3.6 Chloride 106 Carbon Dioxide 26 Anion Gap 8.0 BUN 12 Creatinine 0.6 Estimated GFR (MDRD) 113 Glucose 94 Calcium 9.0 Total Bilirubin 0.5 AST 32 ALT 34 Alkaline Phosphatase 113 Total Protein 8.0 Albumin 4.2 Globulin 3.8 Albumin/Globulin Ratio 1.1 Lipase 16 L Urine Color YELLOW Urine Clarity CLEAR Urine pH 6.5 Ur Specific [place] 1.020 Urine Protein NEGATIVE Urine Glucose (UA) NEGATIVE Urine Ketones NEGATIVE Urine Occult Blood NEGATIVE Urine Nitrite NEGATIVE Urine Bilirubin NEGATIVE Urine Urobilinogen 1 (NORMAL) Ur Leukocyte Esterase NEGATIVE Ur Microscopic Review NOT INDICATED Urine Culture Comments NOT INDICATED Urine HCG, Qual NEGATIVE - Rads (name of study) CT abd/pelvis Radiology: Prelim report reviewed, EMP read contemporaneously, See rad report PD MEDICAL DECISION MAKING - ED course Complexity details: reviewed results, re-evaluated patient, considered differential, d/w patient ED course: 35-year-old female with left flank pain. Unclear etiology. No evidence of obstructing ureteral stone. No evidence of UTI or pyelonephritis. Pain well controlled. Patient is well-appearing, nontoxic. Afebrile. We will continue supportive care and have her follow-up with her doctor for repeat evaluation. Patient counseled regarding signs and symptoms for which I believe and urgent re-evaluation would be necessary. Patient with good understanding of and agreement to plan and is comfortable going home at this time This document was made in part using voice recognition software. While efforts are made to proofread this document, sound alike and grammatical errors may occur. CT SCAN: IMPRESSION: The left kidney contains 2 nonobstructive calculi which 1-2 mm in size, and which are not associated with visualized urinary tract obstruction. The ureters bilaterally appear normal. No retroperitoneal inflammation is seen. There are several pelvic phleboliths, including 4 on the left, but these each were previously present and well visualized on the comparison CT scanning from 10/25/2019. Departure - Departure Disposition: 01 Home, Self Care Clinical Impression: Abdominal pain Qualifiers: Abdominal location: unspecified location Qualified Code(s): R10.9 - Unspecified abdominal pain Condition: Good Instructions: ED Abdominal Pain Unkn Cause Follow-Up: ZAN LYNCH DO [Primary Care Provider] - Within 1 week Prescriptions: Oxycodone HCl/Acetaminophen [Percocet 5-325 mg Tablet] 1 - 2 each PO Q6H PRN #14 tablet PRN Reason: pain Ondansetron Odt [Zofran] 4 mg TL Q6H PRN #10 tablet PRN Reason: Nausea / Vomiting Comments: The cause of your symptoms is unclear today. Please follow-up with your doctor for further care. Your CT scan does not show any acute abnormalities. There are no obstructing ureteral stones. We will trial you on pain medication for a few days and have you follow-up with your doctor. Return if you worsen Do not drink alcohol or drive while on narcotic pain medicine. Note that many narcotic pain relievers also contain tylenol/acetaminophen. Please ensure that your total dose of acetaminophen from all sources does not exceed 3 grams (3000mg) per day. You may constipated on this medication, take a stool softener such as "Colace" twice a day while you are on it. Also recommend a bajh-[id number]-llhiypc laxative such as senna or MiraLAX any day that you do not have a bowel movement. If you received narcotic pain medication in the emergency department, do not drive or operate machinery for the next [address] SCAN: IMPRESSION: The left kidney contains 2 nonobstructive calculi which 1-2 mm in size, and which are not associated with visualized urinary tract obstruction. The ureters bilaterally appear normal. No retroperitoneal inflammation is seen. There are several pelvic phleboliths, including 4 on the left, but these each were previously present and well visualized on the comparison CT scanning from 10/25/2019. Discharge Date/Time: 11/18/20 17:12
--- NOTE | 2020-11-18 16:37 | CT Report ---
PROCEDURE: Abdomen/Pelvis WO INDICATIONS: L flank pain, h/o renal stones TECHNIQUE: Noncontrast 5 mm thick sections acquired from the diaphragms to the symphysis. 5 mm coronal and sagi ttal reformats were then performed. For radiation dose reduction, the following was used: automated exposure control, adjustment of mA and/or kV according to patient size. COMPARISON: Prior 10/25/2019 CT. FINDINGS: Image quality: Excellent. ABDOMEN: Lung bases: Lung bases are clear. Heart size is normal. Solid organs: Liver and spleen are normal in size. Gallbladder Pancreas is normal in contours. No adrenal nodules. Kidneys are normal in size, without hydronephrosis or right-sided nephrolithia sis. There is a punctate 1 x 2 mm calculus, nonobstructive, at the left mid kidney, and a punctate s maller sized calculus also nonobstructive at the lower third medial calyx of the left kidney. Peritoneum and bowel: Unenhanced bowel loops demonstrate normal wall thickness and caliber. No free fluid or air. Apparent gastric reduction surgery by pattern of surgical clips. Nodes and vessels: No retroperitoneal or mesenteric adenopathy by size criteria. Aorta and inferior vena cava are normal in caliber. Miscellaneous: No ventral hernias. PELVIS: Genitourinary: Bladder wall thickness is normal. Miscellaneous: No inguinal hernias or adenopathy. No ureteral stone is found, no inflammation along the course of the ureters is identified. Several pelvic phleboliths are noted at the pelvis bilatera lly, separate from the course of the distal ureters and previously present Bones: No suspicious bony lesions. No vertebral body compression fractures. IMPRESSION: The left kidney contains 2 nonobstructive calculi which 1-2 mm in size, and which are not associated with visualized urinary tract obstruction. The ureters bilaterally appear normal. No retroperitoneal inflammation is seen. There are several pelvic phleboliths, including 4 on the left, but these each w ere previously present and well visualized on the comparison CT scanning from 10/25/2019. Reviewed by: Ubaldo Pal MD on 11/18/2020 4:36 PM PDT Approved by: Ubaldo Pal MD on 11/18/2020 4:36 PM PDT Station ID: [id number]
[2020-11-18 16:53] VITALS: BP 133/81
== END 2020-11-18 17:12 | disposition home or self-care (01) ==
LOC: ED 12:37
DX: N20.0 Calculus of kidney (principal); R10.9 Unspecified abdominal pain
CPT/HCPCS: 36415; 74176; 80053; 81003; 81025; 83690; 85025; 96372; 99284; J1170; Q0162; 81001; 87086

== ENCOUNTER 2021-04-13 07:44 | Outpatient (CLI) | payer OTHER | END 2021-04-13 07:45 | disposition home or self-care (01) | LOC: DI 07:44 | PROVIDERS: ATTEND Internal Medicine | DX: I47.1 Supraventricular tachycardia (principal); R00.2 Palpitations; I51.7 Cardiomegaly | CPT/HCPCS: 93306 ==